=== PATIENT | female | born 1970 | race Caucasian/White ===

== ENCOUNTER 2016-07-29 23:25 | Emergency (ER) | payer OTHER ==
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
[2016-07-30 01:25] LABS: Acetaminophen <10.0 ug/mL; Salicylate <1.0 mg/dL
[2016-07-30 08:45] VITALS: BP 109/77; PULSE 89; RESP 16; TEMP 97.9
== END 2016-07-30 08:47 | disposition home or self-care (01) ==
LOC: EC 23:25
DX: F31.9 Bipolar disorder, unspecified (principal); F10.129 Alcohol abuse with intoxication, unspecified; M79.1 Myalgia; G89.29 Other chronic pain; F20.9 Schizophrenia, unspecified; F41.9 Anxiety disorder, unspecified; F17.200 Nicotine dependence, unspecified, uncomplicated; Z79.899 Other long term (current) drug therapy; Z88.6 Allergy status to analgesic agent; Z88.8 Allergy status to other drugs, medicaments and biological substances; Z91.040 Latex allergy status
CPT/HCPCS: 36415; 80306; 82075; 83520; 99284

== ENCOUNTER 2016-09-13 08:49 | Emergency (ER) | payer OTHER ==
[2016-09-13 08:53] VITALS: TEMP 97.8
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
[2016-09-13] MEDS ORDERED: ACETAMINOPHEN TAB 500 MG TAB PO STA (09:05)
[2016-09-13] MEDS ORDERED: METOCLOPRAMIDE 5 MG/ML 2 ML VIAL IVP STA (09:05)
[2016-09-13] MEDS ORDERED: diphenhydrAMINE 50 MG/ML 1 ML VIAL IVP STA (09:05)
[2016-09-13] MEDS ORDERED: diphenhydrAMINE 25 MG CAP PO STA (09:40)
[2016-09-13] MEDS ORDERED: METOCLOPRAMIDE 5 MG TAB PO STA (09:45)
[2016-09-13 10:13] VITALS: BP 105/53; PULSE 87; RESP 18
== END 2016-09-13 10:13 | disposition home or self-care (01) ==
LOC: EC 08:49
DX: G43.909 Migraine, unspecified, not intractable, without status migrainosus (principal); F41.9 Anxiety disorder, unspecified; F20.9 Schizophrenia, unspecified; F31.9 Bipolar disorder, unspecified; F17.200 Nicotine dependence, unspecified, uncomplicated; Z79.899 Other long term (current) drug therapy; Z88.6 Allergy status to analgesic agent; Z88.8 Allergy status to other drugs, medicaments and biological substances; Z91.040 Latex allergy status
CPT/HCPCS: 70551; 99283

== ENCOUNTER → 2016-09-13 | Outpatient (CLI) | payer OTHER ==
--- NOTE | 2016-09-13 09:00 | MR ---
EXAMINATION TYPE: MR brain wo con DATE OF EXAM: 09/13/2016 8:38 AM COMPARISON: NONE HISTORY: chronic post traumatic headache Multiplanar and multispin-echo imaging of the brain was performed . The ventricles, basal cisterns and sulci overlying the cerebral convexities are within normal limits. There is no evidence for midline shift or mass effect. Acute intracranial hemorrhage or extra-axial collection is not evident. The brain parenchyma reveals no abnormal increased signal. No acute edema is identified. The mastoid air cells are well-aerated. Chronic maxillary sinusitis. IMPRESSION: Unremarkable MRI of the brain. Chronic maxillary sinusitis.
== END | disposition home or self-care (01) ==
LOC: RADMRIMAIN 07:59
PROVIDERS: ATTEND Family Medicine
DX: G44.329 Chronic post-traumatic headache, not intractable (principal)
CPT/HCPCS: 70551

== ENCOUNTER → 2016-09-13 | Outpatient (CLI) | payer OTHER | END | disposition home or self-care (01) | LOC: RADMRIMAIN 08:09 | PROVIDERS: ATTEND Orthopaedic Surgery | DX: Z53.9 Procedure and treatment not carried out, unspecified reason (principal) ==

== ENCOUNTER → 2016-12-24 | Outpatient (CLI) | payer OTHER ==
--- NOTE | 2016-12-24 19:46 | MR ---
EXAMINATION TYPE: MR knee RT wo con DATE OF EXAM: 12/24/2016 6:34 PM COMPARISON: NONE HISTORY: Rt knee pain, prev fracture Apr 2016 TECHNIQUE: Multiplanar, multisequence imaging of the right knee is performed. FINDINGS: MEDIAL MENISCUS: Anterior and posterior horns are intact without tear. Myxoid degeneration posterior horn medial meniscus. LATERAL MENISCUS: Anterior and posterior horns are intact without tear.Myxoid degeneration posterior horn lateral meniscus. CRUCIATE LIGAMENTS: The anterior and posterior cruciate ligaments are intact and unremarkable. COLLATERAL LIGAMENTS: The medial collateral ligament and lateral collateral ligament complex are intact and unremarkable. EXTENSOR MECHANISM: Visualized quadriceps and patellar tendons are intact. EFFUSION: No evidence for joint effusion. POPLITEAL CYST: No popliteal/rodriguez cyst. TRICOMPARTMENT SPACES: The tricompartment joint spaces appear within normal limits. CARTILAGE: The articular cartilage is maintained without abnormal signal or full-thickness defect. BONE MARROW SIGNAL: No focal abnormal marrow signal is appreciated. No evidence of fracture. OTHER: No additional significant abnormality is appreciated. IMPRESSION: 1. Evidence for fracture or bone marrow edema. 2. 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
== END | disposition home or self-care (01) ==
LOC: RADMRIMAIN 17:47
PROVIDERS: ATTEND Orthopaedic Surgery
DX: M23.351 Other meniscus derangements, posterior horn of lateral meniscus, right knee (principal); M23.321 Other meniscus derangements, posterior horn of medial meniscus, right knee

== ENCOUNTER 2019-07-02 21:40 | Emergency (ER) | payer OTHER ==
[2019-07-02 21:45] VITALS: BP 169/78; PULSE 103; RESP 18; TEMP 97.3
[2019-07-02] MEDS ORDERED: ACETAMINOPHEN TAB 325 MG TAB PO STA (21:53)
--- NOTE | 2019-07-02 22:06 | ED ---
General Adult HPI - General Chief complaint: Extremity Injury, Upper Stated complaint: Arm injury Time Seen by Provider: 07/02/19 21:46 Source: patient, RN notes reviewed Mode of arrival: ambulatory Limitations: no limitations - History of Present Illness Initial comments: 48-year-old female presents to the emergency department for a chief complaint of left wrist pain. 2 days ago patient tripped and fell off her porch onto the left hand. She did not hit her head. She did not sustain any other injuries. Denies any lightheadedness or chest pain preceding this fall. Denies loss of consciousness. Patient states that her friends told her it could be broken today so she wanted to come to the ER for evaluation. Patient denies any loss of sensation in the left hand. States it is painful to move the left wrist.Patient has no other complaints at this time including shortness of breath, chest pain, abdominal pain, nausea or vomiting, headache, or visual changes. - Related Data Home Medications Medication Instructions Recorded Confirmed DULoxetine HCL [Cymbalta] 30 mg PO DAILY 07/30/16 07/30/16 DULoxetine HCL [Cymbalta] 60 mg PO HS 07/30/16 07/30/16 QUEtiapine FUMARATE [SEROquel] 300 mg PO HS 07/30/16 07/30/16 QUEtiapine [SEROquel] 50 mg PO DAILY 07/30/16 07/30/16 hydrOXYzine PAMOATE [Vistaril] 50 mg PO BID 07/30/16 07/30/16 Previous Rx's Medication Instructions Recorded Acetaminophen [Tylenol] 500 mg PO Q4-6H PRN #20 tab 07/02/19 Allergies Allergy/AdvReac Type Severity Reaction Status Date / Time aspirin Allergy Dyspnea Verified 07/02/19 21:41 fluoxetine HCl [From Prozac] Allergy Anaphylaxis Verified 07/02/19 21:41 latex Allergy Rash/Hives Verified 07/02/19 21:41 naproxen sodium [From Aleve] Allergy Unknown Verified 07/02/19 21:41 Review of Systems ROS Statement: Those systems with pertinent positive or pertinent negative responses have been documented in the HPI. ROS Other: All systems not noted in ROS Statement are negative. Past Medical History Past Medical History: COPD, Myocardial Infarction ([place]) Additional Past Medical History / Comment(s): hip pain History of Any Multi-Drug Resistant Organisms: None Reported Past Surgical History: Appendectomy, Bladder Surgery, Tubal Ligation Past Psychological History: Anxiety, Bipolar, Depression, Schizophrenia Smoking Status: Current every day smoker Past Alcohol Use History: Heavy Past Drug Use History: None Reported General Exam Limitations: no limitations General appearance: alert, in no apparent distress Head exam: Present: atraumatic, normocephalic, normal inspection Eye exam: Present: normal appearance, PERRL, EOMI. Absent: scleral icterus, conjunctival injection, periorbital swelling ENT exam: Present: normal exam, mucous membranes moist Neck exam: Present: normal inspection. Absent: tenderness, meningismus, lymphadenopathy Respiratory exam: Present: normal lung sounds bilaterally. Absent: respiratory distress, wheezes, rales, rhonchi, stridor Cardiovascular Exam: Present: regular rate, normal rhythm, normal heart sounds. Absent: systolic murmur, diastolic murmur, rubs, gallop, clicks Extremities exam: Present: tenderness (Generalized tenderness noted to the proximal left forearm however no scaphoid tenderness. No tenderness in the left hand.), normal capillary refill (Capillary refill less than 2 seconds, radial pulse 2+ in the left upper extremity.), other (All compartments soft. Skin exam is normal. Sensation is intact in the left upper extremity.). Absent: full ROM (Patient has limited range of motion of the left wrist secondary to pain. She can move all fingers.), pedal edema, joint swelling, calf tenderness Course Vital Signs 07/02/19 21:41 Temperature 97.3 F L Pulse Rate 103 H Respiratory 18 Rate Blood Pressure 169/78 O2 Sat by Pulse 96 Oximetry Procedures - Orthopedic Splinting/Casting Injury #1 Side: left Upper Extremity Injury Location: short arm Upper Extremity Immobilizer: volar splint Medical Decision Making - Medical Decision Making X-ray of the left wrist was negative. However given degree of pain patient was splinted due to concern for occult fracture versus soft tissue injury. Recommended she follow up with orthopedics. She was written a perception for Tylenol. We discussed in depth proper dosing for Tylenol as patient has been taking inappropriate quantities of aspirin for pain. She is agreeable to following prescription instructions. She will return if she has any worsening symptoms. Disposition Clinical Impression: Wrist pain, left Disposition: HOME SELF-CARE Condition: Good Instructions (If sedation given, give patient instructions): Wrist Injury (ED) Additional Instructions: Please follow up with orthopedics in 1-2 days. Take Tylenol for pain. Keep the splint dry. Return to the ER if you have any worsening symptoms. Prescriptions: Acetaminophen [Tylenol] 500 mg PO Q4-6H PRN #20 tab PRN Reason: Pain Is patient prescribed a controlled substance at d/c from ED?: No Referrals: Nonstaff,Physician [REFERRING] - 1-2 days Time of Disposition: 22:32
--- NOTE | 2019-07-02 22:11 | XR ---
EXAMINATION TYPE: XR wrist complete LT DATE OF EXAM: 07/02/2019 COMPARISON: NONE HISTORY: Fall. Wrist pain TECHNIQUE: 4 views FINDINGS: I see no fracture nor dislocation. Joint spaces are normal. Scaphoid is intact. IMPRESSION: Negative left wrist exam.
== END 2019-07-02 22:43 | disposition home or self-care (01) ==
LOC: EC 21:40
DX: M25.532 Pain in left wrist (principal); F31.9 Bipolar disorder, unspecified; F50.9 Eating disorder, unspecified; F41.9 Anxiety disorder, unspecified; F17.200 Nicotine dependence, unspecified, uncomplicated; Z88.6 Allergy status to analgesic agent; Z88.8 Allergy status to other drugs, medicaments and biological substances; Z91.040 Latex allergy status; Z79.899 Other long term (current) drug therapy; W13.0XXA Fall from, out of or through balcony, initial encounter; Y92.008 Other place in unspecified non-institutional (private) residence as the place of occurrence of the external cause
CPT/HCPCS: 29125; 99283

== ENCOUNTER 2019-11-26 23:17 | Observation (INO) | payer OTHER ==
[2019-11-26] MEDS ORDERED: SODIUM CHLORIDE 0.9% 1,000 ML IV STA (23:36)
--- NOTE | 2019-11-27 00:18 | CT ---
EXAMINATION TYPE: CT brain wo con DATE OF EXAM: 11/26/2019 COMPARISON: 04/11/2016 HISTORY: Fall CT DLP: 1094.40 mGycm Automated exposure control for dose reduction was used. Ventricles and sulci appear normal. There is no mass effect nor midline shift. There is no sign of in tracranial hemorrhage. The calvarium is intact. Skull base is intact. IMPRESSION: Negative unenhanced head CT scan. Brain unchanged compared to old exam.
[2019-11-27 00:19] LABS: Basophils # (A) 0.1 k/uL (0-0.2); Basophils % (A) 1 %; Eosinophils # (A) 0.4 k/uL (0-0.7); Eosinophils % (A) 4 %; HCT 53.9 % (34.0-46.0); HGB 16.8 gm/dL (11.4-16.0); Lymphocytes # (A) 2.1 k/uL (1.0-4.8); Lymphocytes % (A) 22 %; MCH 33.1 pg (25.0-35.0); MCHC 31.3 g/dL (31.0-37.0); Macrocytosis Moderate; Mean Platelet Volume 7.8; Monocytes # (A) 0.5 k/uL (0-1.0); Monocytes % (A) 6 %; Neutrophils # (A) 5.8 k/uL (1.3-7.7); Neutrophils % (A) 63 %; Platelet Count 252 k/uL (150-450); RBC 5.08 m/uL (3.80-5.40); WBC 9.2 k/uL (3.8-10.6)
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
[2019-11-27 00:30] LABS: ALT 71 U/L (4-34); AST 89 U/L (14-36); African American GFR (CKD) >90 (>60 ml/min/1.73 sqM); Albumin 4.4 g/dL (3.5-5.0); Alkaline Phosphatase 117 U/L (38-126); Anion Gap 12 mmol/L; Blood Urea Nitrogen 9 mg/dL (7-17); Calcium 8.9 mg/dL (8.4-10.2); Carbon Dioxide 25 mmol/L (22-30); Chloride 104 mmol/L (98-107); Glucose 125 mg/dL (74-99); Non-African American GFR(CKD) >90 (>60 ml/min/1.73 sqM); Potassium 4.4 mmol/L (3.5-5.1); Sodium 141 mmol/L (137-145); Total Bilirubin 0.3 mg/dL (0.2-1.3); Total Protein 8.2 g/dL (6.3-8.2)
[2019-11-27 00:41] LABS: Alcohol 366 mg/dL
[2019-11-27] MEDS ORDERED: methylPREDNISolone SOD SUCCI 125 MG/2 ML VIAL IV STA (00:55)
[2019-11-27] MEDS: IPRATROPIUM-ALBUTEROL 3 ML NEB INHALATION PRN ×2 (01:32→07:22)
[2019-11-27 07:06] LABS: Glucose,Whole Blood 197 mg/dL (75-99)
[2019-11-27 07:31] VITALS: RESP 18
[2019-11-27] MEDS ORDERED: predniSONE 20 MG TAB PO SCH (09:00)
[2019-11-27] MEDS ORDERED: ACETAMINOPHEN TAB 325 MG TAB PO PRN (09:06)
[2019-11-27] MEDS ORDERED: HEPARIN SODIUM,PORCINE 5,000 UNIT/ML 1 ML VIAL SQ SCH ×2 (09:15→16:00)
[2019-11-27] MEDS ORDERED: FAMOTIDINE 20 MG/2 ML VIAL IV SCH (09:15)
--- NOTE | 2019-11-27 10:07 | P.HPIM ---
History of Present Illness This is a pleasant 48 years old female with past medical history of COPD, bipolar, depression and schizophrenia, cigarette smoker, alcohol abuse. Patient was brought by her family yesterday because she was heavily intoxicated with alcoholism. Patient is more awake and alert today and she can give information, she states she drinks about 5 beers every other days or 3 days a week however yesterday drank half a gallon of vodka/liquor which is unusual for her and she got intoxicated, also she smokes about 2 packs per day and uses marijuana. Patient has been complaining from dyspnea recently associated with cough and clear milky phlegm. Also she's been complaining from posterior ucvt-la-bamihuaf headache but with no weakness, numbness, no slurred speech or blurred vision. She denies chest pain , no headache, no weakness or numbness. No fever. No change in urine or bowel habits. She is complaining from pain in her left foot about 2 days however she denies trauma. She is slightly tachycardic 110, she is saturating 90% and with her oxygen via nasal cannula. CBC, BMP are unremarkable. Mildly elevated liver enzymes with AST 89 and ALT 71. Elevated alcohol level at 336 upon admission. Sugar 197. Chest x-ray: No acute process EKG showing normal sinus rhythm at 91 BPM with no significant ST-T changes CT of the brain: No acute process. On admission patient was started on prednisone 40 mg daily Review of Systems CONSTITUTIONAL: No fever, no malaise, no fatigue. HEENT: No recent visual problems or hearing problems. Denied any sore throat. CARDIOVASCULAR: No orthopnea, PND, no palpitations, no syncope. PULMONARY: no hemoptysis. GASTROINTESTINAL: No diarrhea, no nausea, no vomiting, no abdominal pain. Normoactive bowel sounds. NEUROLOGICAL: No headaches, no weakness, no numbness. HEMATOLOGICAL: Denies any bleeding or petechiae. GENITOURINARY: Denies any burning micturition, frequency, or urgency. MUSCULOSKELETAL/RHEUMATOLOGICAL: Denies any joint pain, swelling, or any muscle pain. ENDOCRINE: Denies any polyuria or polydipsia. Past Medical History Past Medical History: COPD, Myocardial Infarction ([place]) Additional Past Medical History / Comment(s): hip pain Last Myocardial Infarction Date:: 2017 History of Any Multi-Drug Resistant Organisms: None Reported Past Surgical History: Appendectomy, Bladder Surgery, Tubal Ligation Past Anesthesia/Blood Transfusion Reactions: No Reported Reaction Past Psychological History: Anxiety, Bipolar, Depression, Schizophrenia Smoking Status: Current every day smoker Past Alcohol Use History: Heavy Past Drug Use History: Marijuana - Past Family History Mother Additional Family Medical History / Comment(s): Grandfather had DVT and gout Medications and Allergies Home Medications Medication Instructions Recorded Confirmed Type No Known Home Medications 11/27/19 11/27/19 History Allergies Allergy/AdvReac Type Severity Reaction Status Date / Time aspirin Allergy Dyspnea Verified 11/27/19 08:12 fluoxetine HCl [From Prozac] Allergy Anaphylaxis Verified 11/27/19 08:12 latex Allergy Rash/Hives Verified 11/27/19 08:12 naproxen sodium [From Aleve] Allergy Unknown Verified 11/27/19 08:12 Physical Exam Vitals: Vital Signs Temp Pulse Pulse Resp BP BP Pulse Ox 11/27/19 07:31 110 H 18 11/27/19 07:22 107 H 16 11/27/19 06:31 97.8 F 112 H 22 129/82 90 L 11/27/19 04:00 95 20 11/27/19 02:08 97.3 F L 95 20 115/80 93 L 11/27/19 01:38 95 11/27/19 01:34 92 11/27/19 01:30 82 20 115/76 95 11/27/19 01:00 89 20 106/68 94 L 11/27/19 00:00 92 24 126/69 95 11/26/19 23:29 24 11/26/19 23:22 98.0 F 96 24 100/64 89 L Intake and Output 11/26/19 11/27/19 11/27/19 22:59 06:59 14:59 Other: Voiding Method Toilet # Voids 0 Weight 127.006 kg -GENERAL: The patient is alert and oriented x3, not in any acute distress. Obese HEENT: Pupils are round and equally reacting to light. EOMI. No scleral icterus. No conjunctival pallor. Normocephalic, atraumatic. No pharyngeal erythema. No thyromegaly. CARDIOVASCULAR: S1 and S2 present. No murmurs, rubs, or gallops. PULMONARY: Chest is clear to auscultation, no wheezing or crackles. ABDOMEN: Soft, nontender, nondistended, normoactive bowel sounds. No palpable organomegaly. MUSCULOSKELETAL: No joint swelling or deformity. EXTREMITIES: No cyanosis, clubbing, or pedal edema. NEUROLOGICAL: Gross neurological examination did not reveal any focal deficits. SKIN: No rashes. No petechiae Results CBC & Chem 7: 11/27/19 00:08 11/27/19 00:08 Labs: Abnormal Lab Results - Last 24 Hours (Table) 11/27/19 11/27/19 11/27/19 Range/Units 00:08 00:08 07:05 Hgb 16.8 H (11.4-16.0) gm/dL Hct 53.9 H (34.0-46.0) % MCV 106.0 H (80.0-100.0) fL Glucose 125 H (74-99) mg/dL POC Glucose (mg/dL) 197 H (75-99) mg/dL AST 89 H (14-36) U/L ALT 71 H (4-34) U/L Serum Alcohol 366 H* mg/dL Thrombosis Risk Factor Assmnt - Choose All That Apply Any of the Below Risk Factors Present?: Yes Each Factor Represents 1 point: Abnormal pulmonary function (COPD), Age 41-60 years, Obesity (BMI >25) Each Risk Factor Represents 3 Points: Family history of DVT/PE Thrombosis Risk Factor Assessment Total Risk Factor Score: 6 Thrombosis Risk Factor Assessment Level: High Risk Assessment and Plan Assessment: Alcohol abuse at-risk of alcohol withdrawal Bipolar, depression and schizophrenia Nicotine dependence COPD with mild acute exacerbation Substance abuse with marijuana morbid obesitywith BMI of 54 Plan: This is a pleasant 48 years old female who presents with a vertical abuse and COPD. Continue with CIWA protocol, continue with thiamine. Consul pulmonary service for her COPD continue with steroids and bronchodilators. And Zithromax We will do x-ray of the left foot, and ultrasound to rule out DVT Patient is counseled to quit continue drinking alcohol, tobacco smoking and subs tance abuse, risks, benefits and alternatives are explained Labs and medication were reviewed.. Continue same treatment. Continue with symptomatic treatment. Resume home medication. Monitor lytes and vitals. DVT and GI prophylaxis. Further recommendations of the clinical course of the patient DVT prophylaxis: Subcutaneous heparin GI Prophylaxis: Pepcid
--- NOTE | 2019-11-27 11:03 | XR ---
EXAMINATION TYPE: XR foot complete LT DATE OF EXAM: 11/27/2019 COMPARISON: NONE HISTORY: 48-year-old female with left foot pain TECHNIQUE: 3 views FINDINGS: Mild degenerative change at the first MTP joint. Some bony irregularity at the lateral distal aspect of the calcaneus. Otherwise, no subluxation or dislocation. Some dorsal soft tissue swelling also not ed. IMPRESSION: Some bony irregularity along the lateral distal calcaneus. Correlate for any pinpoint tenderness here to exclude a subtle fracture. Some dorsal soft tissue swelling is also noted.
--- NOTE | 2019-11-27 11:28 | US ---
EXAMINATION TYPE: US venous doppler duplex LE LT DATE OF EXAM: 11/27/2019 10:34 AM COMPARISON: NONE CLINICAL HISTORY: 48-year-old female Left foot pain. Patient stated fell last night and hit posterior head. C/O left foot pain x 2 days; COPD SIDE PERFORMED: Left TECHNIQUE: The lower extremity deep venous system is examined utilizing real time linear array sonog lydia with graded compression, doppler sonography and color-flow sonography. FINDINGS: VESSELS IMAGED: Common Femoral Vein Deep Femoral Vein Greater Saphenous Vein * Femoral Vein Popliteal Vein Small Saphenous Vein * Proximal Calf Veins Posterior tibial veins (* superficial vessels) Left Leg: Negative for DVT IMPRESSION: No evidence for DVT within the left lower extremity.
[2019-11-27 11:51] LABS: Glucose,Whole Blood 201 mg/dL (75-99)
[2019-11-27 12:04] VITALS: BP 150/90; PULSE 81; TEMP 97.6
[2019-11-28 09:09] LABS: Hemoglobin A1C 6.8 % (4.0-6.0)
== END 2019-11-27 14:59 | disposition left against medical advice (07) ==
LOC: EC 23:17 → 5NMEDONC 11-27 00:45
PROVIDERS: ADMIT Hospitalist; ATTEND Hospitalist
DX: F10.229 Alcohol dependence with intoxication, unspecified (principal); J44.1 Chronic obstructive pulmonary disease with (acute) exacerbation; F17.200 Nicotine dependence, unspecified, uncomplicated; F20.9 Schizophrenia, unspecified; F31.9 Bipolar disorder, unspecified; F41.9 Anxiety disorder, unspecified; I25.2 Old myocardial infarction; R09.02 Hypoxemia; S00.83XA Contusion of other part of head, initial encounter; Z68.43 Body mass index [BMI] 50.0-59.9, adult; Y90.8 Blood alcohol level of 240 mg/100 ml or more; R74.8 Abnormal levels of other serum enzymes; Z88.8 Allergy status to other drugs, medicaments and biological substances; Z88.6 Allergy status to analgesic agent; Z91.040 Latex allergy status
CPT/HCPCS: 96361 ×2; 96375; 96374; 99285; 36415; 94640; 93005; 83880; 80053; 85025; 83036; 73630; 71046; 93971; 70450; G0378; G0480; J2930; J7512; 80320

== ENCOUNTER 2021-02-21 09:27 | Inpatient (IN) | payer OTHER ==
[2021-02-21 09:37] VITALS: RESP 18; TEMP 97.8
[2021-02-21] MEDS ORDERED: SODIUM CHLORIDE 0.9% 1,000 ML IV STA (10:03)
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
[2021-02-21 10:29] LABS: Basophils # (A) 0.1 k/uL (0-0.2); Basophils % (A) 1 %; Eosinophils # (A) 0.3 k/uL (0-0.7); Eosinophils % (A) 6 %; HCT 48.8 % (34.0-46.0); HGB 15.5 gm/dL (11.4-16.0); Lymphocytes # (A) 1.6 k/uL (1.0-4.8); Lymphocytes % (A) 29 %; MCH 33.8 pg (25.0-35.0); MCHC 31.8 g/dL (31.0-37.0); MCV 106.4 fL (80.0-100.0); Macrocytosis Moderate; Mean Platelet Volume 8.3; Monocytes # (A) 0.3 k/uL (0-1.0); Monocytes % (A) 6 %; Neutrophils # (A) 3.1 k/uL (1.3-7.7); Neutrophils % (A) 55 %; Platelet Count 280 k/uL (150-450); RBC 4.58 m/uL (3.80-5.40); RDW 14.6 % (11.5-15.5); WBC 5.6 k/uL (3.8-10.6)
[2021-02-21 10:43] LABS: ALT 96 U/L (4-34); African American GFR (CKD) >90 (>60 ml/min/1.73 sqM); Anion Gap 9 mmol/L; Blood Urea Nitrogen 8 mg/dL (7-17); Calcium 8.7 mg/dL (8.4-10.2); Carbon Dioxide 26 mmol/L (22-30); Chloride 105 mmol/L (98-107); Glucose 124 mg/dL (74-99); Lipase 269 U/L (23-300); Non-African American GFR(CKD) >90 (>60 ml/min/1.73 sqM); Sodium 140 mmol/L (137-145); Total Bilirubin 0.5 mg/dL (0.2-1.3)
[2021-02-21 11:06] LABS: Albumin 3.7 g/dL (3.5-5.0); Alcohol 317 mg/dL; Potassium 3.9 mmol/L (3.5-5.1); Total Protein 7.7 g/dL (6.3-8.2)
[2021-02-21 11:07] LABS: AST 121 U/L (14-36); Alkaline Phosphatase 104 U/L (38-126)
[2021-02-21 11:25] LABS: Appearance,Urine Clear (Clear); Bacteria,Urine Rare /hpf; Bilirubin,Urine Negative (Negative); Blood,Urine Negative (Negative); Color,Urine Light Yellow; Glucose,Urine (UA) Negative (Negative); Ketones,Urine Negative (Negative); Leukocyte Esterase,Urine Large (Negative); Nitrite,Urine Negative (Negative); Protein,Urine Negative (Negative); RBC,Urine 2 /hpf (0-5); Specific Gravity,Urine 1.003 (1.001-1.035); Squamous Epithelial Cell,Urine <1 /hpf (0-4); Urobilinogen,Urine <2.0 mg/dL (<2.0); WBC,Urine 15 /hpf (0-5)
[2021-02-21 11:58] VITALS: BP 98/62; PULSE 87
[2021-02-21] MEDS ORDERED: LORazepam 2 MG/ML INJ IV PRN ×3 (11:59)
[2021-02-21] MEDS ORDERED: NALOXONE 0.4 MG/ML 1 ML VIAL IV PRN (11:59)
[2021-02-21] MEDS ORDERED: ACETAMINOPHEN TAB 325 MG TAB PO PRN (11:59)
[2021-02-21] MEDS ORDERED: MULTIVITAMINS, THERA 1 EACH TAB PO SCH (12:00)
[2021-02-21] MEDS ORDERED: 1: THIAMINE 100 MG, FOLIC ACID 1 MG in SODIUM CHLORIDE 0.9% 1,000 ML 2: SODIUM CHLORIDE IVPB SCH (12:00)
[2021-02-21] MEDS ORDERED: THIAMINE 100 MG TAB PO SCH (17:30)
== END 2021-02-21 14:40 | disposition left against medical advice (07) | DRG 894 ==
LOC: EC 09:27 → 4SSUR 12:03
PROVIDERS: ADMIT Internal Medicine; ATTEND Internal Medicine
DX: F10.129 Alcohol abuse with intoxication, unspecified (principal); F17.210 Nicotine dependence, cigarettes, uncomplicated; F20.9 Schizophrenia, unspecified; J44.9 Chronic obstructive pulmonary disease, unspecified; F31.9 Bipolar disorder, unspecified; G89.29 Other chronic pain; I25.2 Old myocardial infarction; Y90.8 Blood alcohol level of 240 mg/100 ml or more; Z98.51 Tubal ligation status; Z88.5 Allergy status to narcotic agent; Z91.040 Latex allergy status
CPT/HCPCS: 36415; 80053; 80320; 81001; 83690; 83735; 85025; 87086; 96360; 99285

== ENCOUNTER 2022-09-23 16:30 | Emergency (ER) | payer OTHER ==
[2022-09-23 17:28] VITALS: TEMP 97.8
--- NOTE | 2022-09-23 17:52 | ED ---
Extremity Problem HPI - General Source: patient, RN notes reviewed Mode of arrival: ambulatory Limitations: no limitations <Marley Brooks - Last Filed: 09/23/22 17:51> <Ara Carballo - Last Filed: 09/23/22 18:59> <Barrett Quinonez - Last Filed: 09/23/22 20:20> - General Chief complaint: Extremity Problem,Nontraumatic Stated complaint: L hand injury Time Seen by Provider: 09/23/22 17:51 - History of Present Illness Initial comments: Patient is a 51 year old female who presents to the emergency department for l eft hand pain. (Marley Brooks) Quick note reviewed: When I evaluated the patient is a 51-year-old female with no significant past alcohol history who presents the emergency department with left wrist pain for 5 days. Patient denies any recent trauma or injury. She does report overuse that she must take care of her mother at home. She been taking Tylenol Motrin at home with mild symptomatically relief. She denies any numbness or tingling or weakness in the extremity. (Ara Carballo) - Related Data Home Medications Medication Instructions Recorded Confirmed No Known Home Medications 11/27/19 02/21/21 Allergies Allergy/AdvReac Type Severity Reaction Status Date / Time aspirin Allergy Dyspnea Verified 09/23/22 17:28 fluoxetine HCl [From Prozac] Allergy Anaphylaxis Verified 09/23/22 17:28 latex Allergy Rash/Hives Verified 09/23/22 17:28 naproxen sodium [From Aleve] Allergy Unknown Verified 09/23/22 17:28 Review of Systems ROS Other: All systems not noted in ROS Statement are negative. <Marley Brooks - Last Filed: 09/23/22 17:51> ROS Other: All systems not noted in ROS Statement are negative. <Ara Carballo - Last Filed: 09/23/22 18:59> ROS Other: All systems not noted in ROS Statement are negative. <Barrett Quinonez - Last Filed: 09/23/22 20:20> ROS Statement: Those systems with pertinent positive or pertinent negative responses have been documented in the HPI. Past Medical History Past Medical History: COPD, Myocardial Infarction ([place]) Additional Past Medical History / Comment(s): hip pain Last Myocardial Infarction Date:: 2018 History of Any Multi-Drug Resistant Organisms: None Reported Past Surgical History: Appendectomy, Bladder Surgery, Tubal Ligation Past Anesthesia/Blood Transfusion Reactions: No Reported Reaction Past Psychological History: Anxiety, Bipolar, Depression, Schizophrenia Smoking Status: Current every day smoker Past Alcohol Use History: Heavy Past Drug Use History: Marijuana - Past Family History Mother Additional Family Medical History / Comment(s): Grandfather had DVT and gout <Marley Brooks - Last Filed: 09/23/22 17:51> General Exam Limitations: no limitations <Marley Brooks - Last Filed: 09/23/22 17:51> <Ara Carballo - Last Filed: 09/23/22 18:59> - General Exam Comments Initial Comments: Visual Physical Exam Vital signs reviewed General: Well-appearing, nontoxic, no acute distress. Head: Normocephalic, atraumatic Eyes: PERRLA, EOMI ENT: Airway patent Chest: Nonlabored breathing Skin: No visual rash, normal skin tone Neuro: Alert and oriented 3 Musculoskeletal: No gross abnormalities (Marley Brooks) General: Alert, in no acute distress Head: atraumatic normocephalic. Eyes PERRL, EOMI intact, mucous membranes moist Respiratory: Lungs clear to auscultation bilaterally Cardiovascular: Heart rate regular rate and rhythm Abdominal: Soft without guarding or rebound Extremities: Normal inspection with full range of motion and normal capillary refill, left wrist without market swelling or ecchymosis. Full range of motion. 5 out of 5 strength testing 2+ radial pulses bilaterally Neuroogic: alert and oriented 3, CN II-XII intact, able to ambulate with steady gait Skin: warm dry and intact with normal color (Ara Carballo) Course <Ara Carballo - Last Filed: 09/23/22 18:59> Vital Signs 09/23/22 17:26 Temperature 97.8 F Pulse Rate 110 H Respiratory 20 Rate Blood Pressure 100/69 O2 Sat by Pulse 97 Oximetry - Reevaluation(s) Reevaluation #1: 09/23/22 18:59: Patient PLACEMENT INTO THE MAIN ER IN THE HALLWAY 19 PATIENT REEVALUATED AND UPDATED ON X-RAY RESULTS. PATIENT BECOMES TEARFUL. PATIENT admits to suicidal ideation for the last month. She denies having a plan. She does report having "some alcohol use but not enough." Denies recent illicit drug use. Patient requesting to be evaluated by emergency psychiatric services at this time. (Ara Carballo) Medical Decision Making <Ara Carballo - Last Filed: 09/23/22 18:59> - Medical Decision Making Was pt. sent in by a medical professional or institution (, [facility], [facility] [employer], urgent care, hospital, or [facility]...) When possible be specific @ -[No] Did you speak to anyone other than the patient for history (EMS, parent, family, police, friend...)? What history was obtained from this source @ -[No] Did you review nursing and triage notes (agree or disagree)? Why? @ -[I reviewed and agree with nursing and triage notes] Were old charts reviewed (outside hosp., previous admission, EMS record, old EKG, old radiological studies, urgent care reports/EKG's, [facility] records)? Report findings @ -[No old charts were reviewed] Differential Diagnosis (chest pain, altered mental status, abdominal pain women, abdominal pain men, vaginal bleeding, weakness, fever, dyspnea, syncope, headache, dizziness, GI bleed, back pain, seizure, CVA, palpatations, mental health, musculoskeletal)? @ -[not applicable] EKG interpreted by me (3pts min.). @ -[As above] X-rays interpreted by me (1pt min.). @ Left hand and wrist x-ray negative for any evidence of fracture or dislocation CT interpreted by me (1pt min.). @ -[None done] U/S interpreted by me (1pt. min.). @ -[None done] What testing was considered but not performed or refused? (CT, X-rays, U/S, labs)? Why? @ -[None] What meds were considered but not given or refused? Why? @ -[None] Did you discuss the management of the patient with other professionals (professionals i.e. [facility], [employer], lab, RT, psych nurse, community mental health social worker, harvest manager, teacher, control officer, case advocate)? Give summary @ -[No] Was smoking cessation discussed for >3mins.? @ -[No] Was critical care preformed (if so, how long)? @ -[No] Were there social determinants of health that impacted care today? How? (Homelessness, low income, unemployed, alcoholism, drug addiction, transportation, low edu. Level, literacy, decrease access to med. care, fpc, rehab)? @ -[No] Was there de-escalation of care discussed even if they declined (Discuss DNR or withdrawal of care, Hospice)? DNR status @ -[No] What co-morbidities impacted this encounter? (DM, HTN, Smoking, COPD, CAD, Cancer, CVA, ARF, Chemo, Hep., AIDS, mental health diagnosis, sleep apnea, morbid obesity)? @ -[None] Was patient admitted / discharged? Hospital course, mention meds given and route, prescriptions, significant lab abnormalities, going to OR and other pertinent info. @ -Disposition pending. . This is a pleasant 51-year-old female presents to the emergency department with left wrist pain. patient had a thorough history and Physical exam performed while in the ED. physical exam is essentially unremarkable. Heart rate regular rate and rhythm, lungs clear to auscultation bilaterally, abdomen soft and non-tender. There are no focal neuro deficits noted on exam. Patient able to ambulate. Patient had lab work and imaging performed within essentially unremarkable. I discussed the results in detail with the patient verbalized understanding and all questions were addressed. Upon reevaluation patient verbalizes thoughts of suicidal ideation and would like to be evaluated by emergency psychiatric services. Patient admits to recent alcohol use. Patient will be signed out to the [facility] agrees to care outpatient while awaiting for EPS evaluation. Undiagnosed new problem with uncertain prognosis? @ -[No] Drug Therapy requiring intensive monitoring for toxicity (Heparin, Nitro, Insulin, Cardizem)? @ -[No] Were any procedures done? @ -[No] Diagnosis/symptom? @ -Left wrist pain - Suicidal Ideation Acute, or Chronic, or Acute on Chronic? @ -Acute Uncomplicated (without systemic symptoms) or Complicated (systemic symptoms)? @ -uncomplicated Side effects of treatment? @ -[No] Exacerbation, Progression, or Severe Exacerbation? @ -[No] Poses a threat to life or bodily function? How? (Chest pain, [place], [place], pneumonia, PE, COPD, DKA, ARF, appy, cholecystitis, CVA, Diverticulitis, Homicidal, Suicidal, threat to staff... and all critical care pts) @ -low likelihood (Ara Carballo) Disposition <Marley Brooks - Last Filed: 09/23/22 17:51> Is patient prescribed a controlled substance at d/c from ED?: No Time of Disposition: 18:46 <Ara Carballo - Last Filed: 09/23/22 18:59> Is patient prescribed a controlled substance at d/c from ED?: No <Barrett Quinonez - Last Filed: 09/23/22 20:20> Clinical Impression: Left wrist pain Disposition: HOME SELF-CARE Additional Instructions: These return to the nearest emergency department if symptoms worsen or persist Referrals: None,Stated [Primary Care Provider] - 1-2 days
--- NOTE | 2022-09-23 18:11 | XR ---
EXAMINATION TYPE: XR hand complete LT, XR wrist complete LT DATE OF EXAM: 09/23/2022 6:06 PM INDICATION: Patient age:Female; 51 years old; Reason for study: PAIN AFTER HELPING FAMILY MEMBER; [facility]. COMPARISON: 07/02/2019 TECHNIQUE: Frontal, lateral and oblique views of the left hand and wrist hand were obtained. Addition al navicular view of the wrist. FINDINGS: Normal alignment of the visualized joints. No acute osseous pathology is identified. No e vidence of soft tissue swelling. IMPRESSION: No acute osseous pathology.
[2022-09-23] MEDS ORDERED: IBUPROFEN 800 MG TAB PO STA (18:47)
[2022-09-24 04:56] VITALS: BP 110/68; PULSE 98; RESP 16
== END 2022-09-24 04:15 | disposition home or self-care (01) ==
LOC: EC 16:30
DX: M25.532 Pain in left wrist (principal); R45.851 Suicidal ideations; J44.9 Chronic obstructive pulmonary disease, unspecified; I25.2 Old myocardial infarction; F17.200 Nicotine dependence, unspecified, uncomplicated; F12.90 Cannabis use, unspecified, uncomplicated; Z88.6 Allergy status to analgesic agent; Z88.8 Allergy status to other drugs, medicaments and biological substances; Z91.040 Latex allergy status
CPT/HCPCS: 82075; 87635; 99284

== ENCOUNTER 2022-10-26 15:01 | Observation (INO) | payer OTHER ==
--- NOTE | 2022-10-26 15:03 | ED ---
Alcohol HPI - General Stated Complaint: ETOH Time Seen by Provider: 10/26/22 15:03 Source: RN notes reviewed, old records reviewed Mode of arrival: EMS Limitations: altered mental status - History of Present Illness Initial Comments: This is a 51-year-old female presents today for evaluation of altered mental status. Patient not acting appropriately, feels confused, is homeless currently and recently, patient does admit to significant depression and suicidal thoughts. Patient states her daughter was just taken to the dog residential in this is caused her to become significantly upset due to her homelessness. Patient is significantly intoxicated here in the ER is brought for evaluation for monitoring as well as suicidal thoughts MD Complaint: alcohol intoxication, alcohol withdrawal Last Drink: just [employer]PER[employer], unknown -: days(s) Previous Visits for Alcohol Intoxication?: Yes Recent Trauma: No Associated Symptoms: denies other symptoms Treatments Prior to Arrival: none Chronic Alcohol Use: Yes - Related Data Home Medications Medication Instructions Recorded Confirmed Albuterol Inhaler [Ventolin Hfa 1 - 2 puff INHALATION DIRECTED 10/26/22 10/26/22 Inhaler] PRN Levofloxacin [Levaquin] 750 mg PO DIRECTED 10/26/22 10/26/22 Previous Rx's Medication Instructions Recorded Thiamine [Vitamin B-1] 100 mg PO DAILY #30 tab 10/27/22 Allergies Allergy/AdvReac Type Severity Reaction Status Date / Time aspirin Allergy Dyspnea Verified 09/23/22 21:49 fluoxetine HCl [From Prozac] Allergy Anaphylaxis Verified 09/23/22 21:49 latex Allergy Rash/Hives Verified 09/23/22 21:49 naproxen sodium [From Aleve] Allergy Unknown Verified 09/23/22 21:49 Review of Systems ROS Statement: Those systems with pertinent positive or pertinent negative responses have been documented in the HPI. ROS Other: All systems not noted in ROS Statement are negative. Past Medical History Past Medical History: COPD, Myocardial Infarction ([place]) Additional Past Medical History / Comment(s): hip pain Last Myocardial Infarction Date:: 2017 History of Any Multi-Drug Resistant Organisms: None Reported Past Surgical History: Appendectomy, Bladder Surgery, Tubal Ligation Past Anesthesia/Blood Transfusion Reactions: No Reported Reaction Past Psychological History: Anxiety, Bipolar, Depression, Schizophrenia Smoking Status: Current every day smoker Past Alcohol Use History: Heavy Past Drug Use History: Marijuana - Past Family History Mother Additional Family Medical History / Comment(s): Grandfather had DVT and gout General Exam Limitations: altered mental status General appearance: appears intoxicated Head exam: Present: atraumatic, normocephalic, normal inspection Eye exam: Present: normal appearance, PERRL, EOMI. Absent: scleral icterus, conjunctival injection, periorbital swelling ENT exam: Present: normal exam, mucous membranes moist Neck exam: Present: normal inspection. Absent: tenderness, meningismus, lymp hadenopathy Respiratory exam: Present: normal lung sounds bilaterally. Absent: respiratory distress, wheezes, rales, rhonchi, stridor Cardiovascular Exam: Present: regular rate, normal rhythm, normal heart sounds. Absent: systolic murmur, diastolic murmur, rubs, gallop, clicks GI/Abdominal exam: Present: soft, normal bowel sounds. Absent: distended, tenderness, guarding, rebound, rigid Extremities exam: Present: normal inspection, full ROM, normal capillary refill. Absent: tenderness, pedal edema, joint swelling, calf tenderness Back exam: Present: normal inspection Neurological exam: Present: alert, oriented X3, CN II-XII intact Psychiatric exam: Present: normal affect, normal mood Skin exam: Present: warm, dry, intact, normal color. Absent: rash Course Vital Signs 10/26/22 15:03 Temperature 97.8 F Pulse Rate 91 Respiratory 18 Rate Blood Pressure 113/78 O2 Sat by Pulse 96 Oximetry - Reevaluation(s) Reevaluation #1: 10/26/22 16:15 Medical records reviewed Reevaluation #2: 10/26/22 16:15 Patient has no significant change in symptoms here in the ER Reevaluation #3: 10/26/22 16:15 Patient informed results and questions answered Reevaluation #4: 10/26/22 15:03 Was pt. sent in by a medical professional or institution? @ -no Did you speak to anyone other than the patient for history? @ -no Did you review nursing and triage notes? @ -agree Were old charts reviewed? @ -yes Differential Diagnosis? @ -prior EKG interpreted by me (3pts min.)? @ -no X-rays interpreted by me (1pt min.)? @ -no CT interpreted by me (1pt min.)? @ -no U/S interpreted by me (1pt. min.)? @ -no What testing was considered but not performed? (CT, X-rays, U/S, labs)? Why? @ -no What meds were considered but not given? Why? @ -no Did you discuss the management of the patient with other professionals? @ -no Did you reconcile home meds? @ -no Was smoking cessation discussed for >3mins.? @ -no Was critical care preformed (if so, how long)? @ -no Were there social determinants of health that impacted care today? How? (Homelessness, low income, unemployed, alcoholism, drug addiction, transportat ion, low edu. Level, literacy, decrease access to med. care, half-way, rehab)? @ -no Was there de-escalation of care discussed even if they declined? (Discuss DNR or withdrawal of care, Hospice)? @ -no What co-morbidities impacted this encounter? (DM, HTN, Smoking, COPD, CAD, Cancer, CVA, Hep., AIDS, mental health diagnosis, sleep apnea, morbid obesity)? @ -none Was patient admitted / discharged? @ - Undiagnosed new problem with uncertain prognosis? @ -no Drug Therapy requiring intensive monitoring for toxicity (Heparin, Nitro, Insulin, Cardizem)? @ -no Were any procedures done? @ -no Diagnosis/symptom? @ -51 female to the emergency department for evaluation. Patient will be admitted for alcohol intoxication with significant severe withdrawal likely high, patient continued to remain depressed significant and psychiatric evaluation and treatment Admitted Acute, or Chronic, or Acute on Chronic? @ -acute Uncomplicated (without systemic symptoms) or Complicated (systemic symptoms)? @ -complicated Side effects of treatment? @ -no Exacerbation, Progression, or Severe Exacerbation] @ -no Poses a threat to life or bodily function? @ -yes with significant toxicity Reevaluation #5: 10/26/22 16:16 Differential Altered Mental Status: Hypoglycemia, DKA, hypercapnia, ETOH, overdose, CO poisoning, trauma, myxedema coma, HTN encephalopathy, infection, encephalitis, psychosis, intercranial hemorrhage, hepatic encephalopathy, meningitis, CVA, this is not meant to be an all-inclusive list - Consultations Consultation #1: Spoke with [facility] related but the patient Medical Decision Making - Medical Decision Making 51 female to the emergency department for evaluation. Patient will be admitted for alcohol intoxication with significant severe withdrawal likely high, patient continued to remain depressed significant and psychiatric evaluation and treatment - Lab Data Result diagrams: 10/26/22 16:53 10/26/22 16:53 Disposition Clinical Impression: Tobacco abuse, Alcohol intoxication, Homelessness, Suicidal ideation, Depression Disposition: ADMITTED IP TO [facility] Condition: Fair Is patient prescribed a controlled substance at d/c from ED?: No Time of Disposition: 16:45
[2022-10-26] MEDS ORDERED: SODIUM CHLORIDE 0.9% 1,000 ML IV STA ×2 (15:25)
[2022-10-26] MEDS ORDERED: LORazepam 2 MG/ML INJ IV PRN ×3 (16:17)
[2022-10-26] MEDS ORDERED: NALOXONE 0.4 MG/ML 1 ML VIAL IV PRN (16:17)
[2022-10-26] MEDS ORDERED: ONDANSETRON 4 MG/2 ML VIAL IVP PRN (16:17)
[2022-10-26] MEDS ORDERED: THIAMINE 100 MG/ML 2 ML VIAL IM STA (16:17)
[2022-10-26 17:08] LABS: Basophils % (A) 0 %; Eosinophils % (A) 0 %; HCT 49.2 % (34.0-46.0); HGB 15.2 gm/dL (11.4-16.0); Hypochromasia Slight; Lymphocytes # (A) 0.5 k/uL (1.0-4.8); Lymphocytes % (A) 10 %; MCH 31.8 pg (25.0-35.0); MCV 102.7 fL (80.0-100.0); Macrocytosis Slight; Mean Platelet Volume 8.3; Monocytes # (A) 0.1 k/uL (0-1.0); Monocytes % (A) 1 %; Neutrophils % (A) 87 %; Platelet Count 258 k/uL (150-450); RBC 4.79 m/uL (3.80-5.40); WBC 4.5 k/uL (3.8-10.6)
[2022-10-26 17:20] LABS: ALT 55 U/L (4-34); AST 71 U/L (14-36); African American GFR (CKD) >90 (>60 ml/min/1.73 sqM); Albumin 4.3 g/dL (3.5-5.0); Alkaline Phosphatase 123 U/L (38-126); Anion Gap 15 mmol/L; Blood Urea Nitrogen 16 mg/dL (7-17); Calcium 9.2 mg/dL (8.4-10.2); Carbon Dioxide 20 mmol/L (22-30); Chloride 108 mmol/L (98-107); Glucose 173 mg/dL (74-99); Lipase 238 U/L (23-300); Non-African American GFR(CKD) 79 (>60 ml/min/1.73 sqM); Phosphorus 3.7 mg/dL (2.5-4.5); Potassium 4.6 mmol/L (3.5-5.1); Sodium 143 mmol/L (137-145); Total Bilirubin 0.3 mg/dL (0.2-1.3)
[2022-10-26 17:30] LABS: Alcohol 373 mg/dL
[2022-10-26] MEDS ORDERED: LORazepam 2 MG/ML INJ IV STA (18:54)
[2022-10-26] MEDS ORDERED: diphenhydrAMINE 50 MG/ML 1 ML VIAL IVP STA (18:54)
[2022-10-26] MEDS: SODIUM CHLORIDE 0.9% 1,000 ML IV SCH (22:00)
[2022-10-27] MEDS: SODIUM CHLORIDE 0.9% 1,000 ML IV SCH ×2 (01:01→06:34)
[2022-10-27 08:07] VITALS: RESP 16
[2022-10-27] MEDS ORDERED: THIAMINE 100 MG TAB PO SCH (09:00)
--- NOTE | 2022-10-27 13:13 | P.CN ---
Psychiatric Consult - . Consult date: 10/27/22 Consult:: 10/27/22 13:12 IDENTIFYING DATA: This patient is a single, on SSI, 51-year-old female with a significant history of alcohol use disorder who presents to our hospital 10/26/2022. HISTORY OF PRESENT ILLNESS: The patient presented to the hospital on 10/26/2022, brought into the emergency department by EMS for altered mental status, confusion, and suicidal ideation. Reportedly, the patient was expressing increased stress due to possibly being homeless. Notably intoxicated in the emergency department when she made the statements of suicidal ideation. The patient was subsequently admitted to the medical floor psychiatrist and consulted for evaluation of depression and suicidal ideation. Upon evaluation by this provider, the patient is vehemently denying any suicidal or homicidal ideation, intention, and/or plan. She denies any access to firearms or other weapons. She reports one prior attempt at suicide when she was 16 years old. She is not reporting any significant symptoms of depression at this time. She does report some poor sleep however the patient has been drinking excessively. She reports that she is been jerking up to 3-4 pints of liquor per day. She reports that prior to this current binge episode, the patient has been reportedly sober for 5 years. She expresses strong desire to quit alcohol and to continue with outpatient services for both mental health and for her substance abuse. In regards to other psychiatric symptoms, the patient is denying any auditory or visual hallucinations. She is not reporting any paranoia or other delusions. She denies any significant history of bipolar disorder. She denies any increased goal-directed activity, grandiosity, mood lability, racing thoughts, or periods of excessive energy. PAST PSYCHIATRIC HISTORY: Patient reports that she has a history of depression and anxiety. The patient reports that she is briefly trialed Prozac however denying any current psychiatric medication prescriptions. She reports one prior psychiatric hospitalization when she was 16 years old. Patient denies any psychiatric outpatient follow-up. One prior attempt at suicide when she was a teenager. PAST MEDICAL HISTORY: Past Medical History: COPD, Myocardial Infarction ([place]) Additional Past Medical History / Comment(s): hip pain Last Myocardial Infarction Date:: 2017 History of Any Multi-Drug Resistant Organisms: None Reported Past Surgical History: Appendectomy, Bladder Surgery, Tubal Ligation Past Anesthesia/Blood Transfusion Reactions: No Reported Reaction Past Psychological History: Anxiety, Bipolar, Depression, Schizophrenia Smoking Status: Current every day smoker Past Alcohol Use History: Heavy Past Drug Use History: Marijuana ALLERGIES: Aspirin, Prozac, latex, naproxen CHEMICAL DEPENDENCY HISTORY: The patient reports drinking 3-4 pints of liquor per day. She also reports daily tobacco use. She reports a history of marijuana use. She denies any illicit drug use. FAMILY PSYCHIATRIC/SUBSTANCE USE HISTORY: No reported family psychiatric history SOCIAL HISTORY: Patient was born in [place] and raised in [place], [place]. She is single, never , but has 2 grown sons. She currently lives with her niece and nephew. She reports good support from her family. MENTAL STATUS EXAM: General Appearance: Patient appears to be stated age is alert, pleasant, and cooperative. Patient appears to have fair hygiene and grooming wearing hospital gown with fair eye contact. Behavior: Patient is calmly seated upright in her bed without any agitated behavior. She is calmly eating her lunch. Speech: Patient's speech is fluent and nonpressured. Mood/Affect: Patient reports their mood is "feeling better", affect is congruent and euthymic Suicidality/Homicidality: Patient reports no suicidal or homicidal ideation, intention, and/or plan. Perceptions: Patient denies any visual hallucinations and denies any auditory hallucinations Though content/process: There is no evidence of any delusional thought content and thought process is linear and goal-directed. Memory and concentration: AOX3, grossly intact for the purposes of this session. Can spell "WORLD" backwards Judgment and insight: Fair Vital Signs Temp 97.8 F 10/27/22 07:00 Pulse 87 10/27/22 07:00 Resp 16 10/27/22 07:00 BP 135/79 10/27/22 07:00 Pulse Ox 95 10/27/22 07:00 FiO2 Intake & Output 10/26/22 10/27/22 10/27/22 18:59 06:59 18:59 Weight 113.398 kg Other: # Voids 1 Laboratory Results WBC 4.5 k/uL (3.8-10.6) 10/26/22 16:53 RBC 4.79 m/uL (3.80-5.40) 10/26/22 16:53 Hgb 15.2 gm/dL (11.4-16.0) 10/26/22 16:53 Hct 49.2 % (34.0-46.0) H 10/26/22 16:53 MCV 102.7 fL (80.0-100.0) H 10/26/22 16:53 MCH 31.8 pg (25.0-35.0) 10/26/22 16:53 MCHC 31.0 g/dL (31.0-37.0) 10/26/22 16:53 RDW 15.0 % (11.5-15.5) 10/26/22 16:53 Plt Count 258 k/uL (150-450) 10/26/22 16:53 MPV 8.3 10/26/22 16:53 Neutrophils % 87 % 10/26/22 16:53 Lymphocytes % 10 % 10/26/22 16:53 Monocytes % 1 % 10/26/22 16:53 Eosinophils % 0 % 10/26/22 16:53 Basophils % 0 % 10/26/22 16:53 Neutrophils # 4.0 k/uL (1.3-7.7) 10/26/22 16:53 Lymphocytes # 0.5 k/uL (1.0-4.8) L 10/26/22 16:53 Monocytes # 0.1 k/uL (0-1.0) 10/26/22 16:53 Eosinophils # 0.0 k/uL (0-0.7) 10/26/22 16:53 Basophils # 0.0 k/uL (0-0.2) 10/26/22 16:53 Hypochromasia Slight 10/26/22 16:53 Macrocytosis Slight 10/26/22 16:53 Sodium 143 mmol/L (137-145) 10/26/22 16:53 Potassium 4.6 mmol/L (3.5-5.1) 10/26/22 16:53 Chloride 108 mmol/L (98-107) H 10/26/22 16:53 Carbon Dioxide 20 mmol/L (22-30) L 10/26/22 16:53 Anion Gap 15 mmol/L 10/26/22 16:53 BUN 16 mg/dL (7-17) 10/26/22 16:53 Creatinine 0.85 mg/dL (0.52-1.04) 10/26/22 16:53 Est GFR (CKD-EPI)AfAm >90 (>60 ml/min/1.73 sqM) 10/26/22 16:53 Est GFR (CKD-EPI)NonAf 79 (>60 ml/min/1.73 sqM) 10/26/22 16:53 Glucose 173 mg/dL (74-99) H 10/26/22 16:53 Calcium 9.2 mg/dL (8.4-10.2) 10/26/22 16:53 Phosphorus 3.7 mg/dL (2.5-4.5) 10/26/22 16:53 Magnesium 2.0 mg/dL (1.6-2.3) 10/26/22 16:53 Total Bilirubin 0.3 mg/dL (0.2-1.3) 10/26/22 16:53 AST 71 U/L (14-36) H 10/26/22 16:53 ALT 55 U/L (4-34) H 10/26/22 16:53 Alkaline Phosphatase 123 U/L (38-126) 10/26/22 16:53 Total Protein 8.0 g/dL (6.3-8.2) 10/26/22 16:53 Albumin 4.3 g/dL (3.5-5.0) 10/26/22 16:53 Lipase 238 U/L (23-300) 10/26/22 16:53 Serum Alcohol 373 mg/dL H* 10/26/22 16:53 IMPRESSIONS: Acute alcohol intoxication, resolved Alcohol-induced depressive disorder Alcohol use disorder Nicotine dependence PLAN: -Continue your medical management -At this time patient DOES NOT meet criteria for inpatient psychiatric admission. The patient is not presenting with imminent risk of harm to self or others. She is future and goal oriented and expresses strong desire to quit alcohol. She wishes to pursue this in the outpatient setting. -Delirium precautions recommended with patient including - avoiding use of narcotics and KNOCKDOWN MAN sedatives, limit anticholinergic medications when possible, frequent re-orientation, minimize use of restraints, open window shades during the day and close them at night -Would recommend the following medication changes/additions: No medication recommendations be made at this time. -Discontinue one-to-one sitter -Recommend case management provide the patient with resources for outpatient substance abuse treatment. Recommend outpatient psychiatric follow-up as well to address co-occurring mental health issues. -Psychiatry will sign off at this point, please contact with any questions. 10/27/22 13:12
[2022-10-27 15:02] VITALS: BP 164/87; PULSE 81; TEMP 98.3
--- NOTE | 2022-11-23 23:31 | P.DS ---
Providers Date of admission: 10/26/22 16:17 Expected date of discharge: 10/27/22 Attending physician: Aamir Escamilla Consults: 10/26/22 16:17 Consult Physician Routine Consulting Provider: Kevin Jovel Reason/Comments: psychSI Do you want consulting provider notified?: Already Contacted Primary care physician: Stated None Hospital Course: Discharge diagnosis Acute alcohol intoxication Mild transaminitis Severe depression and suicidal ideation Elevated blood sugar 173 on admission Macrocytosis likely due to alcohol abuse Severe alcohol abuse Currently everyday smoker COPD History of [place] Anxiety/depression bipolar disorder schizophrenia DVT prophylaxis with heparin subcu Hospital course 51-year-old female with a known history of COPD, history [place], anxiety/depression bipolar disorder, and heavy alcohol use and currently everyday smoker and marijuana use was brought to the hospital due to altered mental status. Patient has been confused and acting inappropriately. Patient is currently homeless and recently admitted to hospital due to severe depression and suicidal thoughts. Otherwise patient was intoxicated upon arrival to the ER. Patient otherwise currently denies any complaints of chest pain or shortness of breath. No nausea vomiting or abdominal pain or diarrhea. No cough or sputum production. Laboratory test WBC 4.5 hemoglobin 15.1 MCV 102.7 Sodium 143 potassium 4.6 chloride 108 bicarb is 20 BUN 16 and creatinine 0.85 and blood sugar is 173. AST 71 ALT is 55 and alk phos of 123 and serum alcohol level is 373 and lipase level is 238. Patient was continued on IV hydration and thiamine and multivitamin. Monitored for alcohol withdrawal symptoms. Psychiatry was consulted due to suicidal ideation and severe depression history. Psychiatry recommends no inpatient psychiatric admission at this time. Bedside sitter has been discontinued. Patient was counseled extensively for alcohol abstinence and smoking cessation and recommended to follow-up with her primary care physician. PHYSICAL EXAMINATION: Patient is lying in the bed comfortably, no acute distress, awake alert and oriented.. HEENT: Normocephalic. Neck is supple. Pupils reactive. Nostrils clear. Oral cavity is moist. Neck reveals no JVD, carotid bruits, or thyromegaly. CHEST EXAMINATION: Trachea is central. Symmetrical expansion. Lung qureshi clear to auscultation and percussion. CARDIAC: Normal S1, S2 with no gallops. No murmurs ABDOMEN: Soft. Bowel sounds present. Nontender. No organomegaly. No abdominal bruits. Extremities: reveal no edema. No clubbing or cyanosis Neurologically awake, alert, oriented x3 with well-coordinated movements. No focal deficits noted Skin: No rash or skin lesions. Psychiatric: Coperative. Nonsuicidal, Musculoskeletal: No joint swelling or deformity. Normal range of motion. Discharge vitals reviewed. Patient Condition at Discharge: Fair Plan - Discharge Summary Discharge Rx Participant: No New Discharge Prescriptions: New Thiamine [Vitamin B-1] 100 mg PO DAILY #30 tab Continue Levofloxacin [Levaquin] 750 mg PO DIRECTED Albuterol Inhaler [Ventolin Hfa Inhaler] 1 - 2 puff INHALATION DIRECTED PRN PRN Reason: Shortness Of Breath Discharge Medication List Albuterol Inhaler [Ventolin Hfa Inhaler] 1 - 2 puff INHALATION DIRECTED PRN 10/26/22 [History] Levofloxacin [Levaquin] 750 mg PO DIRECTED 10/26/22 [History] Thiamine [Vitamin B-1] 100 mg PO DAILY #30 tab 10/27/22 [Rx] Follow up Appointment(s)/Referral(s): Emma Bailey MD [REFERRING] - 1 Week Patient Instructions/Handouts: How to Stop Smoking (DC), Alcohol Intoxication (DC) Discharge Disposition: HOME SELF-CARE
--- NOTE | 2022-11-23 23:31 | P.HPIM ---
History of Present Illness H&P Date: 10/27/22 Chief Complaint: Alcohol intoxication 51-year-old female with a known history of COPD, history [place], anxiety/depression bipolar disorder, and heavy alcohol use and currently everyday smoker and marijuana use was brought to the hospital due to altered mental status. Patient has been confused and acting inappropriately. Patient is currently homeless and recently admitted to hospital due to severe depression and suicidal thoughts. Otherwise patient was intoxicated upon arrival to the ER. Patient otherwise currently denies any complaints of chest pain or shortness of breath. No nausea vomiting or abdominal pain or diarrhea. No cough or sputum production. Laboratory test WBC 4.5 hemoglobin 15.1 MCV 102.7 Sodium 143 potassium 4.6 chloride 108 bicarb is 20 BUN 16 and creatinine 0.85 and blood sugar is 173. AST 71 ALT is 55 and alk phos of 123 and serum alcohol level is 373 and lipase level is 238. Review of Systems Constitutional: Patient denies any fever or chills . no Generalized weakness. Abdomen: Patient denied any nausea or vomiting or abd. pain Cardiovascular: Patient denies any chest pain or short of breath no palpitations. Respiratory: patient denied any cough . no sputum production. No shortness of breath Neurologic: Patient denied any numbness or tingling headache. Musculoskeletal: Patient denies any complaints of joint swelling or deformity. Skin: Negative Psychiatric: Negative Endocrine: No heat or cold intolerance. No recent weight gain. Genitourinary: No dysuria or hematuria. All other 14 point ROS negative except the above Past Medical History Past Medical History: COPD, Myocardial Infarction ([place]) Additional Past Medical History / Comment(s): hip pain Last Myocardial Infarction Date:: 2017 History of Any Multi-Drug Resistant Organisms: None Reported Past Surgical History: Appendectomy, Bladder Surgery, Tubal Ligation Past Anesthesia/Blood Transfusion Reactions: No Reported Reaction Past Psychological History: Anxiety, Bipolar, Depression, Schizophrenia Smoking Status: Current every day smoker Past Alcohol Use History: Heavy Past Drug Use History: Marijuana - Past Family History Mother Additional Family Medical History / Comment(s): Grandfather had DVT and gout Medications and Allergies Home Medications Medication Instructions Recorded Confirmed Type Albuterol Inhaler [Ventolin Hfa 1 - 2 puff INHALATION DIRECTED 10/26/22 10/26/22 History Inhaler] PRN Levofloxacin [Levaquin] 750 mg PO DIRECTED 10/26/22 10/26/22 History Thiamine [Vitamin B-1] 100 mg PO DAILY #30 tab 10/27/22 Rx Allergies Allergy/AdvReac Type Severity Reaction Status Date / Time aspirin Allergy Dyspnea Verified 09/23/22 21:49 fluoxetine HCl [From Prozac] Allergy Anaphylaxis Verified 09/23/22 21:49 latex Allergy Rash/Hives Verified 09/23/22 21:49 naproxen sodium [From Aleve] Allergy Unknown Verified 09/23/22 21:49 Physical Exam Vitals: Vital Signs Temp Pulse Pulse Resp BP BP BP 10/27/22 07:00 97.8 F 87 16 135/79 10/27/22 02:39 98.6 F 91 17 106/65 10/26/22 21:10 98.1 F 84 16 109/71 10/26/22 15:03 97.8 F 91 18 113/78 Pulse Ox 10/27/22 07:00 95 10/27/22 02:39 95 10/26/22 21:10 94 L 10/26/22 15:03 96 Intake and Output 10/26/22 10/27/22 10/27/22 22:59 06:59 14:59 Other: # Voids 1 1 Weight 113.398 kg PHYSICAL EXAMINATION: Patient is lying in the bed comfortably, no acute distress, awake alert and oriented.. HEENT: Normocephalic. Neck is supple. Pupils reactive. Nostrils clear. Oral cavity is moist. Neck reveals no JVD, carotid bruits, or thyromegaly. CHEST EXAMINATION: Trachea is central. Symmetrical expansion. Lung qureshi clear to auscultation and percussion. CARDIAC: Normal S1, S2 with no gallops. No murmurs ABDOMEN: Soft. Bowel sounds present. Nontender. No organomegaly. No abdominal bruits. Extremities: reveal no edema. No clubbing or cyanosis Neurologically awake, alert, oriented x3 with well-coordinated movements. No focal deficits noted Skin: No rash or skin lesions. Psychiatric: Coperative. Nonsuicidal, Musculoskeletal: No joint swelling or deformity. Normal range of motion. Results CBC & Chem 7: 10/26/22 16:53 10/26/22 16:53 Labs: Abnormal Lab Results - Last 24 Hours (Table) 10/26/22 10/26/22 Range/Units 16:53 16:53 Hct 49.2 H (34.0-46.0) % MCV 102.7 H (80.0-100.0) fL Lymphocytes # 0.5 L (1.0-4.8) k/uL Chloride 108 H (98-107) mmol/L Carbon Dioxide 20 L (22-30) mmol/L Glucose 173 H (74-99) mg/dL AST 71 H (14-36) U/L ALT 55 H (4-34) U/L Serum Alcohol 373 H* mg/dL Thrombosis Risk Factor Assmnt - DVT/VTE Prophylaxis DVT/VTE Prophylaxis: Pharmacologic Prophylaxis ordered - Choose All That Apply Any of the Below Risk Factors Present?: Yes Each Factor Represents 1 point: Age 41-60 years, Obesity (BMI >25), Swollen legs (current) Other Risk Factors: No Other congenital or acquired thrombophilia - If yes, enter type in comment: No Thrombosis Risk Factor Assessment Total Risk Factor Score: 3 Thrombosis Risk Factor Assessment Level: Moderate Risk Assessment and Plan Assessment: Acute alcohol intoxication Mild transaminitis Severe depression and suicidal ideation Elevated blood sugar 173 on admission Macrocytosis likely due to alcohol abuse Severe alcohol abuse Currently everyday smoker COPD History of [place] Anxiety/depression bipolar disorder schizophrenia DVT prophylaxis with heparin subcu Plan: Patient will be continued on IV hydration and thiamine and multivitamin. Monitor for alcohol withdrawal symptoms. Psychiatry was consulted due to suicidal ideation and severe depression history. Follow-up closely. And monitor CBC. Patient was counseled extensively for alcohol abstinence and smoking cessation and recommended to follow-up with her primary care physician. Time with Patient: Greater than 30
== END 2022-10-27 15:23 | disposition home or self-care (01) ==
LOC: EC 15:01 → 6NMEDSUR 16:17
PROVIDERS: ADMIT Hospitalist; ATTEND Hospitalist
DX: F10.129 Alcohol abuse with intoxication, unspecified (principal); F10.14 Alcohol abuse with alcohol-induced mood disorder; J44.9 Chronic obstructive pulmonary disease, unspecified; F31.9 Bipolar disorder, unspecified; F20.9 Schizophrenia, unspecified; F41.9 Anxiety disorder, unspecified; F17.200 Nicotine dependence, unspecified, uncomplicated; R73.9 Hyperglycemia, unspecified; R74.01 Elevation of levels of liver transaminase levels; I25.2 Old myocardial infarction; Z59.00 Homelessness unspecified; R45.851 Suicidal ideations; E66.8 Other obesity; Z68.42 Body mass index [BMI] 45.0-49.9, adult; D75.89 Other specified diseases of blood and blood-forming organs; Y90.8 Blood alcohol level of 240 mg/100 ml or more; Z79.899 Other long term (current) drug therapy; Z88.8 Allergy status to other drugs, medicaments and biological substances; Z88.6 Allergy status to analgesic agent; Z91.040 Latex allergy status; Z98.51 Tubal ligation status; Z71.41 Alcohol abuse counseling and surveillance of alcoholic; Z71.6 Tobacco abuse counseling; Z91.51 Personal history of suicidal behavior; Z90.49 Acquired absence of other specified parts of digestive tract; Z82.69 Family history of other diseases of the musculoskeletal system and connective tissue; Z82.49 Family history of ischemic heart disease and other diseases of the circulatory system
CPT/HCPCS: 82075; 96361; 96372; 96374; 96375; 99285; 80053; 83690; 83735; 84100; 85025; G0378 ×2; G0480; J2060; J1200; J3411; 80320

== ENCOUNTER 2023-08-24 20:46 | Observation (INO) | payer OTHER ==
[2023-08-24 22:02] VITALS: TEMP 98
[2023-08-24] MEDS: SODIUM CHLORIDE 0.9% 1,000 ML IV STA (22:12)
[2023-08-24 22:13] LABS: Basophils # (A) 0.1 k/uL (0-0.2); Basophils % (A) 1 %; Eosinophils # (A) 0.3 k/uL (0-0.7); Eosinophils % (A) 2 %; HCT 49.6 % (34.0-46.0); Lymphocytes # (A) 2.4 k/uL (1.0-4.8); Lymphocytes % (A) 21 %; MCH 31.9 pg (25.0-35.0); MCHC 30.3 g/dL (31.0-37.0); MCV 105.3 fL (80.0-100.0); Macrocytosis Moderate; Mean Platelet Volume 8.2; Monocytes # (A) 0.4 k/uL (0-1.0); Monocytes % (A) 3 %; Neutrophils # (A) 8.1 k/uL (1.3-7.7); Neutrophils % (A) 70 %; Platelet Count 286 k/uL (150-450); RBC 4.71 m/uL (3.80-5.40); RDW 13.7 % (11.5-15.5); WBC 11.6 k/uL (3.8-10.6)
[2023-08-24 22:23] LABS: ALT 31 U/L (4-34); AST 38 U/L (14-36); African American GFR (CKD) 74 (>60 ml/min/1.73 sqM); Albumin 4.2 g/dL (3.5-5.0); Alkaline Phosphatase 98 U/L (38-126); Anion Gap 14 mmol/L; Blood Urea Nitrogen 16 mg/dL (7-17); Carbon Dioxide 16 mmol/L (22-30); Chloride 112 mmol/L (98-107); Glucose 102 mg/dL (74-99); INR 0.9 (<1.2); Non-African American GFR(CKD) 64 (>60 ml/min/1.73 sqM); Partial Thromboplastin Time 23.3 sec (22.0-30.0); Potassium 4.2 mmol/L (3.5-5.1); Prothrombin Time 10.3 sec (10.0-12.5); Sodium 142 mmol/L (137-145); Total Bilirubin 0.3 mg/dL (0.2-1.3); Total Protein 7.9 g/dL (6.3-8.2)
[2023-08-24 22:31] LABS: NT-Pro-B-Type Natriuretic Pept 82 pg/mL
[2023-08-24 22:34] LABS: Alcohol 348 mg/dL
--- NOTE | 2023-08-24 22:37 | ED ---
General Adult HPI - General Chief complaint: Alcohol Stated complaint: ETOH, Fall Time Seen by Provider: 08/24/23 21:50 Source: patient Mode of arrival: EMS Limitations: no limitations - History of Present Illness Initial comments: 52-year-old female with past medical history of COPD, alcohol abuse who presents emergency department after a fall. States that she fell to her knees and hit her head. She was on the ground for 3 minutes. She was able to get up and call EMS. While in the waiting room, the patient was seen guzzling her bottle of vodka. This was taken away from her. Her vitals were obtained and she was found to be hypoxic. Patient admits to having history of COPD. She denies smoking however the patient does have several packs of cigarettes on her. She does not wear oxygen at home. She denies any chest pain. No other alleviating, precipitating or modifying factors - Related Data Previous Rx's Medication Instructions Recorded DULoxetine HCL [Cymbalta] 30 mg PO DAILY #15 cap 06/11/23 Multivitamins, Thera [Multivitamin 1 each PO DAILY #30 tab 06/11/23 (formulary)] QUEtiapine [SEROquel] 50 mg PO HS #15 tab 06/11/23 Thiamine [Vitamin B-1] 100 mg PO DAILY #30 tab 06/11/23 amLODIPine [Norvasc] 2.5 mg PO DAILY #30 tab 06/11/23 Allergies Allergy/AdvReac Type Severity Reaction Status Date / Time aspirin Allergy Dyspnea Verified 06/10/23 16:32 fluoxetine HCl [From Prozac] Allergy Anaphylaxis Verified 06/10/23 16:32 latex Allergy Rash/Hives Verified 06/10/23 16:32 naproxen sodium [From Aleve] Allergy Unknown Verified 06/10/23 16:32 Review of Systems ROS Statement: Those systems with pertinent positive or pertinent negative responses have been documented in the HPI. ROS Other: All systems not noted in ROS Statement are negative. Past Medical History Past Medical History: COPD, Myocardial Infarction ([place]) Additional Past Medical History / Comment(s): hip pain Last Myocardial Infarction Date:: 2017 History of Any Multi-Drug Resistant Organisms: None Reported Past Surgical History: Appendectomy, Bladder Surgery, Tubal Ligation Past Anesthesia/Blood Transfusion Reactions: No Reported Reaction Past Psychological History: Anxiety, Bipolar, Depression, Schizophrenia Smoking Status: Current every day smoker Past Alcohol Use History: Heavy Past Drug Use History: Marijuana - Past Family History Mother Additional Family Medical History / Comment(s): Grandfather had DVT and gout General Exam Limitations: physical limitation General appearance: appears intoxicated, lethargic Head exam: Present: atraumatic, normocephalic, normal inspection Eye exam: Present: normal appearance, PERRL, EOMI. Absent: scleral icterus, conjunctival injection, periorbital swelling ENT exam: Present: normal exam, mucous membranes moist Neck exam: Present: normal inspection. Absent: tenderness, meningismus, lymphadenopathy Respiratory exam: Present: other (Coarse breath sounds bilaterally) Cardiovascular Exam: Present: regular rate, normal rhythm, normal heart sounds. Absent: systolic murmur, diastolic murmur, rubs, gallop, clicks GI/Abdominal exam: Present: soft, normal bowel sounds. Absent: distended, tenderness, guarding, rebound, rigid Neurological exam: Present: altered Psychiatric exam: Present: flat affect Skin exam: Present: warm, dry, intact, normal color. Absent: rash Course Vital Signs 08/24/23 08/24/23 08/24/23 21:45 22:07 23:57 Temperature 98 F Pulse Rate 81 67 69 Respiratory 20 18 18 Rate Blood Pressure 82/59 97/59 83/56 O2 Sat by Pulse 86 L 96 95 Oximetry 08/25/23 08/25/23 08/25/23 00:42 02:13 04:17 Temperature Pulse Rate 68 76 74 Respiratory 18 18 16 Rate Blood Pressure 87/62 84/52 90/56 O2 Sat by Pulse 96 92 L 94 L Oximetry 08/25/23 07:00 Temperature Pulse Rate 76 Respiratory 18 Rate Blood Pressure 112/60 O2 Sat by Pulse 94 L Oximetry Medical Decision Making - Medical Decision Making Was pt. sent in by a medical professional or institution (, PA, SURGICAL RN, urgent care, hospital, or fci...) When possible be specific @ -No Did you speak to anyone other than the patient for history (EMS, parent, family, police, friend...)? What history was obtained from this source @ -No Did you review nursing and triage notes (agree or disagree)? Why? @ -I reviewed and agree with nursing and triage notes Were old charts reviewed (outside hosp., previous admission, EMS record, old EKG , old radiological studies, urgent care reports/EKG's, fci records)? Report findings @ -No old charts were reviewed Differential Diagnosis (chest pain, altered mental status, abdominal pain women, abdominal pain men, vaginal bleeding, weakness, fever, dyspnea, syncope, headache, dizziness, GI bleed, back pain, seizure, CVA, palpatations, mental health, musculoskeletal)? @ -Differential Altered Mental Status: Hypoglycemia, DKA, hypercapnia, ETOH, overdose, CO poisoning, trauma, myxedema coma, HTN encephalopathy, infection, encephalitis, psychosis, intercranial hemorrhage, hepatic encephalopathy, meningitis, CVA, this is not meant to be an all-inclusive list EKG interpreted by me (3pts min.). @ -Yes and demonstrates sinus rhythm with a rate of 65. CA interval 109. QRS 106. QTc of 442. No acute ST segment elevations or depressions X-rays interpreted by me (1pt min.). @ -Yesx-ray demonstrates no acute process in the chest or bilateral knees. CT interpreted by me (1pt min.). @ -CT the brain is interpreted as negative for process by myself U/S interpreted by me (1pt. min.). @ -None done What testing was considered but not performed or refused? (CT, X-rays, U/S, labs )? Why? @ -None What meds were considered but not given or refused? Why? @ -None Did you discuss the management of the patient with other professionals (professionals i.e. , PA, SURGICAL RN, lab, RT, psych nurse, social insurance administrator, relationship executive, teacher, vice squad police officer, case management coordinator)? Give summary @ -Spoke with Dr. Jerez who accepted the patient as an admission Was smoking cessation discussed for >3mins.? @ -Yes however patient is refusing to admit that she smokes even though she is found with 3 packs of cigarettes. Smoking cessation was discussed for greater than 3 minutes. Was critical care preformed (if so, how long)? @ -No Were there social determinants of health that impacted care today? How? (H omelessness, low income, unemployed, alcoholism, drug addiction, transportation, low edu. Level, literacy, decrease access to med. care, [facility], rehab)? @ -Alcoholism Was there de-escalation of care discussed even if they declined (Discuss DNR or withdrawal of care, Hospice)? DNR status @ -No What co-morbidities impacted this encounter? (DM, HTN, Smoking, COPD, CAD, Cancer, CVA, ARF, Chemo, Hep., AIDS, mental health diagnosis, sleep apnea, morbid obesity)? @ -Alcohol abuse Was patient admitted / discharged? Hospital course, mention meds given and route, prescriptions, significant lab abnormalities, going to OR and other pertinent info. @ -Upon arrival patient was seen and evaluated in trauma 2. Thorough history and physical exam was performed. Patient is placed on 2 L of oxygen and does saturate above 90%. IV is established. Laboratory studies are conducted. Chest x-ray was performed. Patient is intoxicated. She will be admitted for supplemental oxygen, breathing treatments and alcohol withdrawal protocol. Patient was agreeable to admission. Spoke with Dr. Jerez for the admission Undiagnosed new problem with uncertain prognosis? @ -No Drug Therapy requiring intensive monitoring for toxicity (Heparin, Nitro, Insulin, Cardizem)? @ -No Were any procedures done? @ -No Diagnosis/symptom? @ -Acute alcohol intoxication, acute hypoxic respiratory failure, acute exacerbation of COPD Acute, or Chronic, or Acute on Chronic? @ -Acute Uncomplicated (without systemic symptoms) or Complicated (systemic symptoms)? @ -Complicated Side effects of treatment? @ -No Exacerbation, Progression, or Severe Exacerbation? @ -No Poses a threat to life or bodily function? How? (Chest pain, [place], [place], pneumonia, PE, COPD, DKA, ARF, appy, cholecystitis, CVA, Diverticulitis, Homicidal, Suicidal, threat to staff... and all critical care pts) @ -Yes as patient is hypoxic from her alcohol intake - Lab Data Result diagrams: 08/25/23 03:30 08/25/23 03:30 Lab Results 08/24/23 08/24/23 08/24/23 Range/Units 22:06 22:06 22:06 WBC 11.6 H (3.8-10.6) k/uL RBC 4.71 (3.80-5.40) m/uL Hgb 15.0 (11.4-16.0) gm/dL Hct 49.6 H (34.0-46.0) % MCV 105.3 H (80.0-100.0) fL MCH 31.9 (25.0-35.0) pg MCHC 30.3 L (31.0-37.0) g/dL RDW 13.7 (11.5-15.5) % Plt Count 286 (150-450) k/uL MPV 8.2 Neutrophils % 70 % Lymphocytes % 21 % Monocytes % 3 % Eosinophils % 2 % Basophils % 1 % Neutrophils # 8.1 H (1.3-7.7) k/uL Lymphocytes # 2.4 (1.0-4.8) k/uL Monocytes # 0.4 (0-1.0) k/uL Eosinophils # 0.3 (0-0.7) k/uL Basophils # 0.1 (0-0.2) k/uL Macrocytosis Moderate PT 10.3 (10.0-12.5) sec INR 0.9 (<1.2) APTT 23.3 (22.0-30.0) sec Sodium 142 (137-145) mmol/L Potassium 4.2 (3.5-5.1) mmol/L Chloride 112 H (98-107) mmol/L Carbon Dioxide 16 L (22-30) mmol/L Anion Gap 14 mmol/L BUN 16 (7-17) mg/dL Creatinine 1.00 (0.52-1.04) mg/dL Est GFR (CKD-EPI)AfAm 74 (>60 ml/min/1.73 sqM) Est GFR (CKD-EPI)NonAf 64 (>60 ml/min/1.73 sqM) Glucose 102 H (74-99) mg/dL Plasma Lactic Acid Ed (0.7-2.0) mmol/L Calcium 9.0 (8.4-10.2) mg/dL Total Bilirubin 0.3 (0.2-1.3) mg/dL AST 38 H (14-36) U/L ALT 31 (4-34) U/L Alkaline Phosphatase 98 (38-126) U/L Troponin I (0.000-0.034) ng/mL NT-Pro-B Natriuret Pep 82 pg/mL Total Protein 7.9 (6.3-8.2) g/dL Albumin 4.2 (3.5-5.0) g/dL Serum Alcohol 348 H* mg/dL 08/24/23 08/24/23 Range/Units 22:06 22:06 WBC (3.8-10.6) k/uL RBC (3.80-5.40) m/uL Hgb (11.4-16.0) gm/dL Hct (34.0-46.0) % MCV (80.0-100.0) fL MCH (25.0-35.0) pg MCHC (31.0-37.0) g/dL RDW (11.5-15.5) % Plt Count (150-450) k/uL MPV Neutrophils % % Lymphocytes % % Monocytes % % Eosinophils % % Basophils % % Neutrophils # (1.3-7.7) k/uL Lymphocytes # (1.0-4.8) k/uL Monocytes # (0-1.0) k/uL Eosinophils # (0-0.7) k/uL Basophils # (0-0.2) k/uL Macrocytosis PT (10.0-12.5) sec INR (<1.2) APTT (22.0-30.0) sec Sodium (137-145) mmol/L Potassium (3.5-5.1) mmol/L Chloride (98-107) mmol/L Carbon Dioxide (22-30) mmol/L Anion Gap mmol/L BUN (7-17) mg/dL Creatinine (0.52-1.04) mg/dL Est GFR (CKD-EPI)AfAm (>60 ml/min/1.73 sqM) Est GFR (CKD-EPI)NonAf (>60 ml/min/1.73 sqM) Glucose (74-99) mg/dL Plasma Lactic Acid Ed 1.5 (0.7-2.0) mmol/L Calcium (8.4-10.2) mg/dL Total Bilirubin (0.2-1.3) mg/dL AST (14-36) U/L ALT (4-34) U/L Alkaline Phosphatase (38-126) U/L Troponin I <0.012 (0.000-0.034) ng/mL NT-Pro-B Natriuret Pep pg/mL Total Protein (6.3-8.2) g/dL Albumin (3.5-5.0) g/dL Serum Alcohol mg/dL Disposition Clinical Impression: Alcohol intoxication, Tobacco abuse, Hypoxia, Toxic encephalopathy Disposition: ADMITTED IP TO THIS HOSP Condition: Stable Is patient prescribed a controlled substance at d/c from ED?: No Time of Disposition: 23:18 Decision to Admit Reason: Admit from EC Decision Date: 08/24/23 Decision Time: 23:18
--- NOTE | 2023-08-24 22:45 | CT ---
EXAM: CT Head Without Intravenous Contrast CLINICAL HISTORY: ITS.REASON CT Reason: etoh, head injury, altered mental status TECHNIQUE: Axial computed tomography images of the head/brain without intravenous contrast. CTDI is 45.2 mGy and DLP is 1004 mGy-cm. This CT exam was performed using one or more of the following dose reduction techniques: automated exposure control, adjustment of the mA and/or kV according to patient size, and/or use of iterative reconstruction technique. COMPARISON: No relevant prior studies available. FINDINGS: No acute intracranial hemorrhage. No midline shift or mass effect. The territorial bowie-white matter differentiation is maintained throughout. Age-related cerebral volume loss. Periventricular and subcortical white matter hypoattenuation, consistent with chronic microangiopathy. The visualized orbits appear grossly unremarkable. The calvarium is intact. The visualized paranasal sinuses and mastoid air cells are grossly clear. IMPRESSION: No acute intracranial hemorrhage, midline shift, or mass effect. EXAM: CT Cervical Spine Without Intravenous Contrast CLINICAL HISTORY: ITS.REASON CT Reason: etoh, head injury, altered mental status TECHNIQUE: Axial computed tomography images of the cervical spine without intravenous contrast. CTDI is 18.7 mGy and DLP is 474.8 mGy-cm. This CT exam was performed using one or more of the following dose reduction techniques: automated exposure control, adjustment of the mA and/or kV according to patient size, and/or use of iterative reconstruction technique. COMPARISON: No relevant prior studies available. FINDINGS: The vertebral body heights are maintained. The craniocervical junction is intact. The atlanto-dens interval is maintained. The dens is intact. There is no spondylolisthesis. Multilevel cervical spondylosis and degenerative disc disease. Straightening of the cervical lordosis. The unenhanced neck soft tissues are grossly unremarkable. The visualized lung apices are grossly clear. IMPRESSION: No acute fracture or subluxation of the cervical spine.
--- NOTE | 2023-08-24 22:46 | XR ---
EXAM: XR Chest, 2 Views CLINICAL HISTORY: ITS.REASON XR Reason: difficulty breathing TECHNIQUE: Frontal and lateral views of the chest. COMPARISON: No relevant prior studies available. FINDINGS: Lungs: Unremarkable. No consolidation. Pleural space: Unremarkable. No pneumothorax. Heart: Cardiomegaly. Mediastinum: Unremarkable. Normal mediastinal contour. Bones/joints: Unremarkable. No acute fracture. Vasculature: Calcified aorta. IMPRESSION: No acute findings in the chest.
[2023-08-24] MEDS ORDERED: NALOXONE 0.4 MG/ML 1 ML VIAL IV PRN (23:18)
[2023-08-24] MEDS ORDERED: ONDANSETRON 4 MG/2 ML VIAL IVP PRN (23:18)
[2023-08-24] MEDS ORDERED: LORazepam 2 MG/ML INJ IV PRN ×3 (23:20)
--- NOTE | 2023-08-24 23:33 | XR ---
EXAM: XR Bilateral Knees, 3 Views CLINICAL HISTORY: ITS.REASON XR Reason: etoh, head injury, altered mental status TECHNIQUE: Three views of the bilateral knees. COMPARISON: No relevant prior studies available. FINDINGS: Bones/joints: Unremarkable. No acute fracture. No dislocation. Soft tissues: Unremarkable. IMPRESSION: Normal bilateral knee x-rays.
[2023-08-25] MEDS: THIAMINE 100 MG/ML 2 ML VIAL IM STA (00:37)
[2023-08-25] MEDS: ACETAMINOPHEN TAB 500 MG TAB PO STA (01:29)
[2023-08-25 03:58] LABS: Basophils # (A) 0.1 k/uL (0-0.2); Basophils % (A) 1 %; Eosinophils # (A) 0.2 k/uL (0-0.7); Eosinophils % (A) 2 %; HCT 48.8 % (34.0-46.0); HGB 14.4 gm/dL (11.4-16.0); Hypochromasia Slight; Lymphocytes # (A) 3.1 k/uL (1.0-4.8); Lymphocytes % (A) 35 %; MCH 31.4 pg (25.0-35.0); MCHC 29.6 g/dL (31.0-37.0); MCV 106.2 fL (80.0-100.0); Macrocytosis Moderate; Mean Platelet Volume 8.3; Monocytes # (A) 0.5 k/uL (0-1.0); Monocytes % (A) 5 %; Neutrophils # (A) 4.7 k/uL (1.3-7.7); Neutrophils % (A) 53 %; Platelet Count 235 k/uL (150-450); RDW 13.9 % (11.5-15.5)
[2023-08-25 04:03] LABS: African American GFR (CKD) 82 (>60 ml/min/1.73 sqM); Anion Gap 9 mmol/L; Blood Urea Nitrogen 15 mg/dL (7-17); Calcium 8.3 mg/dL (8.4-10.2); Carbon Dioxide 22 mmol/L (22-30); Chloride 114 mmol/L (98-107); Glucose 86 mg/dL (74-99); Non-African American GFR(CKD) 71 (>60 ml/min/1.73 sqM); Potassium 3.8 mmol/L (3.5-5.1); Sodium 145 mmol/L (137-145)
[2023-08-25 07:35] VITALS: BP 112/60; PULSE 76; RESP 18
[2023-08-25] MEDS ORDERED: IPRATROPIUM-ALBUTEROL 3 ML NEB INHALATION SCH ×2 (08:00)
[2023-08-25] MEDS ORDERED: THIAMINE 100 MG TAB PO SCH (09:00)
== END 2023-08-25 07:44 | disposition left against medical advice (07) ==
LOC: EC 20:46 → 4SSUR 23:20
PROVIDERS: ADMIT Internal Medicine; ATTEND Internal Medicine
DX: F10.229 Alcohol dependence with intoxication, unspecified (principal); J96.01 Acute respiratory failure with hypoxia; J44.1 Chronic obstructive pulmonary disease with (acute) exacerbation; G92.9 Unspecified toxic encephalopathy; F17.210 Nicotine dependence, cigarettes, uncomplicated; W19.XXXA Unspecified fall, initial encounter; Z79.899 Other long term (current) drug therapy; Z88.8 Allergy status to other drugs, medicaments and biological substances; Z88.6 Allergy status to analgesic agent; Z91.040 Latex allergy status; Z53.29 Procedure and treatment not carried out because of patient's decision for other reasons
CPT/HCPCS: 96360; 96372; 99285; 36415; 93005; 83880; 80053; 80048; 83605; 84484; 85025 ×2; 85610; 85730; 73562; 71046; 72125; 70450; G0378 ×2; G0480; J3411; 80320

== ENCOUNTER 2024-05-11 19:09 | Observation (INO) | payer OTHER ==
--- NOTE | 2024-05-11 20:07 | ED ---
General Adult HPI - General Chief complaint: Chest Pain Stated complaint: ETOH, Chest pain Time Seen by Provider: 05/11/24 19:45 Source: patient, EMS, RN notes reviewed Mode of arrival: EMS - History of Present Illness Initial comments: This is a 53-year-old female with a history of COPD, CAD, alcohol abuse presenting to the emergency department via EMS for complaint of intermittent chest pain over the past month that will radiate to the jaw. Patient is a poor historian and appears intoxicated on questioning. States that she has had a half of gallon of vodka to drink today. On discussion patient is denying chest pain, difficulty in breathing, peripheral edema, headaches, blurry double vision, fevers, or chills. - Related Data Home Medications Medication Instructions Recorded Confirmed No Known Home Medications 05/11/24 05/11/24 Allergies Allergy/AdvReac Type Severity Reaction Status Date / Time aspirin Allergy Dyspnea Verified 05/11/24 20:21 fluoxetine HCl [From Prozac] Allergy Anaphylaxis Verified 05/11/24 20:21 latex Allergy Rash/Hives Verified 05/11/24 20:21 naproxen sodium [From Aleve] Allergy Unknown Verified 05/11/24 20:21 Review of Systems ROS Statement: Those systems with pertinent positive or pertinent negative responses have been documented in the HPI. ROS Other: All systems not noted in ROS Statement are negative. Past Medical History Past Medical History: COPD, Myocardial Infarction ([place]) Additional Past Medical History / Comment(s): hip pain Last Myocardial Infarction Date:: 2017 History of Any Multi-Drug Resistant Organisms: None Reported Past Surgical History: Appendectomy, Bladder Surgery, Tubal Ligation Past Anesthesia/Blood Transfusion Reactions: No Reported Reaction Past Psychological History: Anxiety, Bipolar, Depression, Schizophrenia Smoking Status: Current every day smoker Past Alcohol Use History: Heavy Past Drug Use History: Marijuana - Past Family History Mother Additional Family Medical History / Comment(s): Grandfather had DVT and gout General Exam General appearance: alert, in no apparent distress, appears intoxicated Eye exam: Present: normal appearance, PERRL, EOMI. Absent: scleral icterus, conjunctival injection, periorbital swelling Respiratory exam: Present: normal lung sounds bilaterally. Absent: respiratory distress, wheezes, rales, rhonchi, stridor Cardiovascular Exam: Present: regular rate, normal rhythm, normal heart sounds. Absent: systolic murmur, diastolic murmur, rubs, gallop, clicks GI/Abdominal exam: Present: soft, normal bowel sounds. Absent: distended, tenderness, guarding, rebound, rigid Extremities exam: Present: normal inspection, full ROM, normal capillary refill. Absent: tenderness, pedal edema, joint swelling, calf tenderness Neurological exam: Present: alert, oriented X3, CN II-XII intact Course Vital Signs 05/11/24 05/11/24 05/11/24 19:17 19:40 21:45 Temperature 97.9 F Pulse Rate 100 99 Respiratory 18 18 Rate Blood Pressure 108/66 92/60 O2 Sat by Pulse 95 93 L Oximetry Medical Decision Making - Medical Decision Making Was pt. sent in by a medical professional or institution ([facility], PLATE INSPECTOR, urgent care, hospital, or long-term...) When possible be specific @ -No Did you speak to anyone other than the patient for history (EMS, parent, family, police, friend...)? What history was obtained from this source @ -No Did you review nursing and triage notes (agree or disagree)? Why? @ -I reviewed and agree with nursing and triage notes Were old charts reviewed (outside hosp., previous admission, EMS record, old EKG, old radiological studies, urgent care reports/EKG's, long-term records)? Report findings @ -No old charts were reviewed Differential Diagnosis (chest pain, altered mental status, abdominal pain women, abdominal pain men, vaginal bleeding, weakness, fever, dyspnea, syncope, headache, dizziness, GI bleed, back pain, seizure, CVA, palpatations, mental health, musculoskeletal)? @ -Differential Chest Pain: Stable Angina, Unstable Angina, STEMI, NSTEMI Aortic Dissection, Pneumothorax, Musculoskeletal, Esophageal Spasm GERD, Cholecystitis, Pancreatitis, Zoster, this is not meant to be an all-inclusive list. EKG interpreted by me (3pts min.). @ -Completed at 1923, sinus rhythm with a ventricular rate of 89, CT interval 176, QRS 106, QTc 427. X-rays interpreted by me (1pt min.). @ -Chest x-ray reveals right middle lobe airspace opacities. CT interpreted by me (1pt min.). @ -None done U/S interpreted by me (1pt. min.). @ -None done What testing was considered but not performed or refused? (CT, X-rays, U/S, labs )? Why? @ -None What meds were considered but not given or refused? Why? @ -None Did you discuss the management of the patient with other professionals (professionals i.e. , PA, PLATE INSPECTOR, lab, RT, psych nurse, social media designer, telegraph editor, teacher, seal delivery vehicle officer, correctional counselor/case manager)? Give summary @ -Spoke with on-call physician, Dr. Escamilla, with M was agreed for admission with cardiology and psychiatry on consult. Was smoking cessation discussed for >3mins.? @ -No Was critical care preformed (if so, how long)? @ -No Were there social determinants of health that impacted care today? How? (Homelessness, low income, unemployed, alcoholism, drug addiction, transportation, low edu. Level, literacy, decrease access to med. care, [facility], rehab)? @ -No Was there de-escalation of care discussed even if they declined (Discuss DNR or withdrawal of care, Hospice)? DNR status @ -No What co-morbidities impacted this encounter? (DM, HTN, Smoking, COPD, CAD, Cancer, CVA, ARF, Chemo, Hep., AIDS, mental health diagnosis, sleep apnea, morbid obesity)? @ -Alcohol abuse, COPD, coronary artery disease Was patient admitted / discharged? Hospital course, mention meds given and route, prescriptions, significant lab abnormalities, going to OR and other pertinent info. @ -Admitted. 53-year-old female presenting EMS for chest pain. History is limited as patient appears to be intoxicated on questioning. However she is denying all symptoms. Her vitals are stable on arrival. Patient will undergo cardiac evaluation. Laboratory testing remarkable for mild DAPHNEY with a BUN of 28 creatinine of 1.28. Troponin is unremarkable, urine toxicology screen remarkable for THC. Serum alcohol level 313 correlates with time till sober in 12 hours. Patient's EKG sinus rhythm. She will have repeat troponins and cardi ac evaluation EPS evaluation morning. Case discussed with Dr. Lira. Chest x- ray was revealed by my attending as patient is not exhibiting symptoms of pneumonia as her vitals are stable and she is not having URI symptoms or a cough treatment will be withheld at this time. Undiagnosed new problem with uncertain prognosis? @ -No Drug Therapy requiring intensive monitoring for toxicity (Heparin, Nitro, Insulin, Cardizem)? @ -No Were any procedures done? @ -No Diagnosis/symptom? @ -alcohol intoxication, suicidal ideation, chest pain Acute, or Chronic, or Acute on Chronic? @ -acute Uncomplicated (without systemic symptoms) or Complicated (systemic symptoms)? @ -complicated Side effects of treatment? @ -No Exacerbation, Progression, or Severe Exacerbation? @ -No Poses a threat to life or bodily function? How? (Chest pain, [place], [place], pneumonia, PE, COPD, DKA, ARF, appy, cholecystitis, CVA, Diverticulitis, Homicidal, Suicidal, threat to staff... and all critical care pts) @ -No - Lab Data Result diagrams: 05/11/24 20:25 05/11/24 20:25 Lab Results 05/11/24 05/11/24 05/11/24 Range/Units 20:25 20:25 20:25 WBC 8.9 (3.8-10.6) k/uL RBC 4.53 (3.80-5.40) m/uL Hgb 14.8 (11.4-16.0) gm/dL Hct 44.7 (34.0-46.0) % MCV 98.7 (80.0-100.0) fL MCH 32.7 (25.0-35.0) pg MCHC 33.1 (31.0-37.0) g/dL RDW 14.3 (11.5-15.5) % Plt Count 346 (150-450) k/uL MPV 8.1 Neutrophils % 57 % Lymphocytes % 30 % Monocytes % 4 % Eosinophils % 4 % Basophils % 1 % Neutrophils # 5.0 (1.3-7.7) k/uL Lymphocytes # 2.7 (1.0-4.8) k/uL Monocytes # 0.4 (0-1.0) k/uL Eosinophils # 0.4 (0-0.7) k/uL Basophils # 0.1 (0-0.2) k/uL PT 10.3 (10.0-12.5) sec INR 0.9 (<1.2) APTT 24.1 (22.0-30.0) sec Sodium (137-145) mmol/L Potassium (3.5-5.1) mmol/L Chloride (98-107) mmol/L Carbon Dioxide (22-30) mmol/L Anion Gap mmol/L BUN (7-17) mg/dL Creatinine (0.52-1.04) mg/dL Est GFR (CKD-EPI)AfAm (>60 ml/min/1.73 sqM) Est GFR (CKD-EPI)NonAf (>60 ml/min/1.73 sqM) Glucose (74-99) mg/dL Calcium (8.4-10.2) mg/dL Magnesium (1.6-2.3) mg/dL Total Bilirubin (0.2-1.3) mg/dL AST (14-36) U/L ALT (4-34) U/L Alkaline Phosphatase (38-126) U/L Troponin I (0.000-0.034) ng/mL Total Protein (6.3-8.2) g/dL Albumin (3.5-5.0) g/dL Lipase (23-300) U/L Urine Color Colorless Urine Appearance Clear (Clear) Urine pH 5.5 (5.0-8.0) Ur Specific [place] 1.006 (1.001-1.035) Urine Protein Trace H (Negative) Urine Glucose (UA) Negative (Negative) Urine Ketones Negative (Negative) Urine Blood Negative (Negative) Urine Nitrite Negative (Negative) Urine Bilirubin Negative (Negative) Urine Urobilinogen <2.0 (<2.0) mg/dL Ur Leukocyte Esterase Trace H (Negative) Urine RBC <1 (0-5) /hpf Urine WBC 2 (0-5) /hpf Ur Squamous Epith Cells <1 (0-4) /hpf Salicylates mg/dL Urine Opiates Screen Not Detected (NotDetected) Ur Oxycodone Screen Not Detected (NotDetected) Urine Methadone Screen Not Detected (NotDetected) Acetaminophen ug/mL Ur Barbiturates Screen Not Detected (NotDetected) U Tricyclic Antidepress Not Detected (NotDetected) Ur Phencyclidine Scrn Not Detected (NotDetected) Ur Amphetamines Screen Not Detected (NotDetected) U Methamphetamines Scrn Not Detected (NotDetected) U Benzodiazepines Scrn Not Detected (NotDetected) Urine Cocaine Screen Not Detected (NotDetected) U Marijuana (THC) Screen Detected H (NotDetected) Serum Alcohol mg/dL 05/11/24 05/11/24 Range/Units 20:25 20:25 WBC (3.8-10.6) k/uL RBC (3.80-5.40) m/uL Hgb (11.4-16.0) gm/dL Hct (34.0-46.0) % MCV (80.0-100.0) fL MCH (25.0-35.0) pg MCHC (31.0-37.0) g/dL RDW (11.5-15.5) % Plt Count (150-450) k/uL MPV Neutrophils % % Lymphocytes % % Monocytes % % Eosinophils % % Basophils % % Neutrophils # (1.3-7.7) k/uL Lymphocytes # (1.0-4.8) k/uL Monocytes # (0-1.0) k/uL Eosinophils # (0-0.7) k/uL Basophils # (0-0.2) k/uL PT (10.0-12.5) sec INR (<1.2) APTT (22.0-30.0) sec Sodium 144 (137-145) mmol/L Potassium 4.5 (3.5-5.1) mmol/L Chloride 108 H (98-107) mmol/L Carbon Dioxide 20 L (22-30) mmol/L Anion Gap 16 mmol/L BUN 28 H (7-17) mg/dL Creatinine 1.28 H (0.52-1.04) mg/dL Est GFR (CKD-EPI)AfAm 55 (>60 ml/min/1.73 sqM) Est GFR (CKD-EPI)NonAf 47 (>60 ml/min/1.73 sqM) Glucose 106 H (74-99) mg/dL Calcium 9.4 (8.4-10.2) mg/dL Magnesium 2.2 (1.6-2.3) mg/dL Total Bilirubin 0.4 (0.2-1.3) mg/dL AST 35 (14-36) U/L ALT 27 (4-34) U/L Alkaline Phosphatase 101 (38-126) U/L Troponin I <0.012 (0.000-0.034) ng/mL Total Protein 8.7 H (6.3-8.2) g/dL Albumin 4.6 (3.5-5.0) g/dL Lipase 418 H (23-300) U/L Urine Color Urine Appearance (Clear) Urine pH (5.0-8.0) Ur Specific [place] (1.001-1.035) Urine Protein (Negative) Urine Glucose (UA) (Negative) Urine Ketones (Negative) Urine Blood (Negative) Urine Nitrite (Negative) Urine Bilirubin (Negative) Urine Urobilinogen (<2.0) mg/dL Ur Leukocyte Esterase (Negative) Urine RBC (0-5) /hpf Urine WBC (0-5) /hpf Ur Squamous Epith Cells (0-4) /hpf Salicylates <1.0 mg/dL Urine Opiates Screen (NotDetected) Ur Oxycodone Screen (NotDetected) Urine Methadone Screen (NotDetected) Acetaminophen <10.0 ug/mL Ur Barbiturates Screen (NotDetected) U Tricyclic Antidepress (NotDetected) Ur Phencyclidine Scrn (NotDetected) Ur Amphetamines Screen (NotDetected) U Methamphetamines Scrn (NotDetected) U Benzodiazepines Scrn (NotDetected) Urine Cocaine Screen (NotDetected) U Marijuana (THC) Screen (NotDetected) Serum Alcohol 313 H* mg/dL Disposition Clinical Impression: Alcohol intoxication, Suicidal ideation, Chest pain Disposition: ADMITTED IP TO THIS [facility] Condition: Serious Decision to Admit Reason: Admit from EC Decision Date: 05/11/24 Decision Time: 21:43
[2024-05-11 20:45] LABS: Appearance,Urine Clear (Clear); Bilirubin,Urine Negative (Negative); Blood,Urine Negative (Negative); Color,Urine Colorless; Glucose,Urine (UA) Negative (Negative); Ketones,Urine Negative (Negative); Leukocyte Esterase,Urine Trace (Negative); Nitrite,Urine Negative (Negative); PH, Urine 5.5 (5.0-8.0); Protein,Urine Trace (Negative); RBC,Urine <1 /hpf (0-5); Specific Gravity,Urine 1.006 (1.001-1.035); Squamous Epithelial Cell,Urine <1 /hpf (0-4); Urobilinogen,Urine <2.0 mg/dL (<2.0); WBC,Urine 2 /hpf (0-5)
[2024-05-11 20:49] LABS: INR 0.9 (<1.2); Partial Thromboplastin Time 24.1 sec (22.0-30.0); Prothrombin Time 10.3 sec (10.0-12.5)
[2024-05-11 21:00] LABS: Amphetamine Screen,Urine Not Detected (NotDetected); Barbiturate Screen,Urine Not Detected (NotDetected); Benzodiazepines Screen,Urine Not Detected (NotDetected); Cocaine Screen,Urine Not Detected (NotDetected); Methadone Screen, Urine Not Detected (NotDetected); Opiate Screen,Urine Not Detected (NotDetected); Oxycodone Screen, Urine Not Detected (NotDetected); Phencyclidine Screen,Urine Not Detected (NotDetected); Tricyclic Antidepressant,Urine Not Detected (NotDetected); Urn Cannabinoid Scrn Detected (NotDetected)
--- NOTE | 2024-05-11 21:02 | XR ---
EXAMINATION TYPE: XR chest 2V DATE OF EXAM: 05/11/2024 8:52 PM COMPARISON: Chest radiographs from 08/24/2023 CLINICAL INDICATION: Female, 53 years old with history of Chest Pain; TECHNIQUE: XR chest 2V Frontal and lateral views of the chest. FINDINGS: Lungs/Pleura: Right middle lobe airspace opacities. There is no evidence of pleural effusion, focal c onsolidation, or pneumothorax. Pulmonary vascularity: Unremarkable. Heart/mediastinum: Cardiomediastinal silhouette is unremarkable. Musculoskeletal: No acute osseous pathology. IMPRESSION: Right middle lobe airspace opacities correlate for pneumonia. [facility], , 05/11/2024 9:00 PM
[2024-05-11 21:04] LABS: Basophils # (A) 0.1 k/uL (0-0.2); Basophils % (A) 1 %; Eosinophils # (A) 0.4 k/uL (0-0.7); Eosinophils % (A) 4 %; HCT 44.7 % (34.0-46.0); HGB 14.8 gm/dL (11.4-16.0); Lymphocytes # (A) 2.7 k/uL (1.0-4.8); Lymphocytes % (A) 30 %; MCH 32.7 pg (25.0-35.0); MCHC 33.1 g/dL (31.0-37.0); MCV 98.7 fL (80.0-100.0); Mean Platelet Volume 8.1; Monocytes # (A) 0.4 k/uL (0-1.0); Monocytes % (A) 4 %; Neutrophils % (A) 57 %; Platelet Count 346 k/uL (150-450); RBC 4.53 m/uL (3.80-5.40); RDW 14.3 % (11.5-15.5); WBC 8.9 k/uL (3.8-10.6)
[2024-05-11 21:11] LABS: ALT 27 U/L (4-34); AST 35 U/L (14-36); Acetaminophen <10.0 ug/mL; African American GFR (CKD) 55 (>60 ml/min/1.73 sqM); Albumin 4.6 g/dL (3.5-5.0); Alkaline Phosphatase 101 U/L (38-126); Anion Gap 16 mmol/L; Blood Urea Nitrogen 28 mg/dL (7-17); Calcium 9.4 mg/dL (8.4-10.2); Carbon Dioxide 20 mmol/L (22-30); Chloride 108 mmol/L (98-107); Glucose 106 mg/dL (74-99); Lipase 418 U/L (23-300); Magnesium 2.2 mg/dL (1.6-2.3); Non-African American GFR(CKD) 47 (>60 ml/min/1.73 sqM); Potassium 4.5 mmol/L (3.5-5.1); Salicylate <1.0 mg/dL; Sodium 144 mmol/L (137-145); Total Bilirubin 0.4 mg/dL (0.2-1.3); Total Protein 8.7 g/dL (6.3-8.2)
[2024-05-11 21:22] LABS: Alcohol 313 mg/dL
[2024-05-11] MEDS: SODIUM CHLORIDE 0.9% 1,000 ML IV STA (21:43)
[2024-05-11] MEDS ORDERED: NALOXONE 0.4 MG/ML 1 ML VIAL IV PRN (21:44)
[2024-05-11] MEDS ORDERED: ONDANSETRON 4 MG/2 ML VIAL IVP PRN (21:44)
[2024-05-11] MEDS ORDERED: ACETAMINOPHEN TAB 325 MG TAB PO PRN (21:44)
[2024-05-11] MEDS ORDERED: LORazepam 0.5 MG TAB PO PRN (21:52)
[2024-05-11] MEDS ORDERED: LORazepam 2 MG/ML INJ IV PRN ×3 (21:52)
[2024-05-11] MEDS ORDERED: LORazepam 1 MG TAB PO PRN ×3 (21:52)
[2024-05-12] MEDS: SODIUM CHLORIDE 0.9% 1,000 ML IV SCH (00:10)
[2024-05-12 05:47] LABS: Basophils # (A) 0.1 k/uL (0-0.2); Basophils % (A) 1 %; Eosinophils # (A) 0.3 k/uL (0-0.7); Eosinophils % (A) 4 %; HGB 14.1 gm/dL (11.4-16.0); Lymphocytes # (A) 2.9 k/uL (1.0-4.8); Lymphocytes % (A) 34 %; MCH 32.2 pg (25.0-35.0); MCHC 32.1 g/dL (31.0-37.0); MCV 100.4 fL (80.0-100.0); Macrocytosis Slight; Mean Platelet Volume 7.3; Monocytes # (A) 0.4 k/uL (0-1.0); Monocytes % (A) 5 %; Neutrophils # (A) 4.5 k/uL (1.3-7.7); Neutrophils % (A) 53 %; Platelet Count 300 k/uL (150-450); RBC 4.39 m/uL (3.80-5.40); RDW 13.9 % (11.5-15.5); WBC 8.5 k/uL (3.8-10.6)
[2024-05-12 06:53] LABS: ALT 26 U/L (4-34); AST 31 U/L (14-36); African American GFR (CKD) 89 (>60 ml/min/1.73 sqM); Albumin 4.2 g/dL (3.5-5.0); Alkaline Phosphatase 93 U/L (38-126); Anion Gap 14 mmol/L; Blood Urea Nitrogen 22 mg/dL (7-17); Calcium 8.9 mg/dL (8.4-10.2); Carbon Dioxide 18 mmol/L (22-30); Chloride 110 mmol/L (98-107); Glucose 83 mg/dL (74-99); Non-African American GFR(CKD) 77 (>60 ml/min/1.73 sqM); Sodium 142 mmol/L (137-145); Total Bilirubin 0.3 mg/dL (0.2-1.3); Total Protein 7.8 g/dL (6.3-8.2)
[2024-05-12 07:44] VITALS: BP 139/93; PULSE 97; RESP 19; TEMP 97.9
[2024-05-12] MEDS ORDERED: PANTOPRAZOLE 40 MG/10 ML VIAL IV SCH (09:00)
[2024-05-12] MEDS ORDERED: THIAMINE 100 MG TAB PO SCH (09:00)
--- NOTE | 2024-05-12 15:43 | P.HPIM ---
History of Present Illness H&P Date: 05/12/24 Patient came in for alcoholism and chest pain. Patient left AMA was not evaluated by provider. The impression and plan of care has been dictated by Netta Raymundo Nurse Practitioner as directed. Dr. Sunita MD I have performed a history and physical examination and medical decision making of this patient, discussed the same with the dictator, and agree with the dictators assessment and plan as written, documented as a scribe. Based on total visit time, I have performed more than 50% of this visit. Past Medical History Past Medical History: COPD, Myocardial Infarction ([place]) Additional Past Medical History / Comment(s): hip pain Last Myocardial Infarction Date:: 2017 History of Any Multi-Drug Resistant Organisms: None Reported Past Surgical History: Appendectomy, Bladder Surgery, Tubal Ligation Past Anesthesia/Blood Transfusion Reactions: No Reported Reaction Past Psychological History: Anxiety, Bipolar, Depression, Schizophrenia Smoking Status: Current every day smoker Past Alcohol Use History: Heavy Past Drug Use History: Marijuana - Past Family History Mother Additional Family Medical History / Comment(s): Grandfather had DVT and gout Medications and Allergies Home Medications Medication Instructions Recorded Confirmed Type No Known Home Medications 05/11/24 05/11/24 History Allergies Allergy/AdvReac Type Severity Reaction Status Date / Time aspirin Allergy Dyspnea Verified 05/11/24 20:21 fluoxetine HCl [From Prozac] Allergy Anaphylaxis Verified 05/11/24 20:21 latex Allergy Rash/Hives Verified 05/11/24 20:21 naproxen sodium [From Aleve] Allergy Unknown Verified 05/11/24 20:21 Physical Exam Vitals: Vital Signs Temp Pulse Pulse Resp BP BP Pulse Ox 05/12/24 07:43 97.9 F 97 19 139/93 94 L 05/12/24 06:51 98.3 F 80 18 121/92 97 05/12/24 04:00 81 18 98/62 96 05/12/24 02:58 82 18 93 L 05/12/24 01:14 85 19 102/57 93 L 05/11/24 21:45 99 18 92/60 93 L 05/11/24 19:40 108/66 05/11/24 19:17 97.9 F 100 18 95 Results CBC & Chem 7: 05/12/24 05:18 05/12/24 05:18 Labs: Abnormal Lab Results - Last 24 Hours (Table) 05/11/24 05/11/24 05/12/24 Range/Units 20:25 20:25 05:18 MCV 100.4 H (80.0-100.0) fL Chloride 108 H (98-107) mmol/L Carbon Dioxide 20 L (22-30) mmol/L BUN 28 H (7-17) mg/dL Creatinine 1.28 H (0.52-1.04) mg/dL Glucose 106 H (74-99) mg/dL Total Protein 8.7 H (6.3-8.2) g/dL Lipase 418 H (23-300) U/L Urine Protein Trace H (Negative) Ur Leukocyte Esterase Trace H (Negative) U Marijuana (THC) Screen Detected H (NotDetected) Serum Alcohol 313 H* mg/dL 05/12/24 Range/Units 05:18 MCV (80.0-100.0) fL Chloride 110 H (98-107) mmol/L Carbon Dioxide 18 L (22-30) mmol/L BUN 22 H (7-17) mg/dL Creatinine (0.52-1.04) mg/dL Glucose (74-99) mg/dL Total Protein (6.3-8.2) g/dL Lipase (23-300) U/L Urine Protein (Negative) Ur Leukocyte Esterase (Negative) U Marijuana (THC) Screen (NotDetected) Serum Alcohol mg/dL
--- NOTE | 2024-05-12 15:44 | P.DS ---
Providers Date of admission: 05/11/24 21:39 Attending physician: Aamir Escamilla Consults: 05/11/24 21:44 Consult Physician Routine Consulting Provider: Gene Fam Consult Reason/Comments: chest pain, history PR Do you want consulting provider notified?: Yes, Notify in am Primary care physician: Stated None Hospital Course: Patient left AMA The impression and plan of care has been dictated by Netta Raymundo, Nurse Practitioner as directed. Dr. Sunita MD I have performed a history and physical examination and medical decision making of this patient, discussed the same with the dictator, and agree with the dictators assessment and plan as written, documented as a scribe. Based on total visit time, I have performed more than 50% of this visit. Plan - Discharge Summary New Discharge Prescriptions: No Action No Known Home Medications Discharge Medication List No Known Home Medications 05/11/24 [History] Follow up Appointment(s)/Referral(s): None,Stated [Primary Care Provider] - 1-2 days Discharge Disposition: LEFT AGAINST MEDICAL ADVICE
== END 2024-05-12 08:45 | disposition left against medical advice (07) ==
LOC: EC 19:09 → 6NMEDSUR 21:39
PROVIDERS: ADMIT Hospitalist; ATTEND Hospitalist
DX: R07.89 Other chest pain (principal); F10.229 Alcohol dependence with intoxication, unspecified; N17.9 Acute kidney failure, unspecified; R45.851 Suicidal ideations; I25.10 Atherosclerotic heart disease of native coronary artery without angina pectoris; J44.9 Chronic obstructive pulmonary disease, unspecified; R68.84 Jaw pain; F17.200 Nicotine dependence, unspecified, uncomplicated; Y90.8 Blood alcohol level of 240 mg/100 ml or more; Z88.8 Allergy status to other drugs, medicaments and biological substances; Z88.6 Allergy status to analgesic agent; Z91.040 Latex allergy status; Z53.29 Procedure and treatment not carried out because of patient's decision for other reasons
CPT/HCPCS: 96360; 96361; 99285; 36415; 93005; 80053 ×2; 83690; 83735; 84484 ×2; 85025 ×2; 85610; 85730; 81001; 80306; 80143; 80179; 71046; G0378 ×2; G0480; 80320